=== PATIENT | male | born 1975 | race Hispanic/Latino ===

== ENCOUNTER 2016-12-23 03:58 | Emergency (ER) | payer OTHER ==
[2016-12-23 04:41] LABS: Urine Drugs of Abuse Note Disclamer
[2016-12-23 04:49] LABS: Bilirubin,Urine NEG (Negative); Blood,Urine NEG (Negative); Ketones,Urine NEG (Negative); Leukocyte Esterase,Urine TR (Negative); Mucus,Urine FEW /HPF; Nitrite,Urine NEG (Negative); Protein,Urine <15 mg/dL mg/dL (Negative); Urobilinogen,Urine < 2.0 mg/dL (<2.0)
[2016-12-23 05:00] LABS: Hematocrit 50.1 % (35.5-45.6); Hemoglobin 16.8 gm/dl (11.8-15.2); Mean Corpuscular HGB Conc 34 % (32-34); Mean Corpuscular Hemoglobin 33 pg (28-32); Mean Corpuscular Volume 99 fl (84-94); Platelet Count 398 K/mm3 (140-440); Red Blood Count 5.06 M/mm3 (3.65-5.03); Red Cell Distribution Width 14.1 % (13.2-15.2)
[2016-12-23 05:13] LABS: Anion Gap 18 mmol/L; BUN/Creatinine Ratio 8.57; Blood Urea Nitrogen 6 mg/dL (9-20); Calcium 9.2 mg/dL (8.4-10.2); Carbon Dioxide 31 mmol/L (22-30); Chloride 98.9 mmol/L (98-107); Glucose 132 mg/dL (75-100); Potassium 4.5 mmol/L (3.6-5.0); Sodium 143 mmol/L (137-145)
[2016-12-23] MEDS ORDERED: NACL 0.9% 1000 ML 1,000 ML IV ONE (13:04)
[2016-12-23] MEDS ORDERED: ATIVAN PO ONE (13:04)
[2016-12-23] MEDS ORDERED: ATIVAN IV PRN ×3 (13:38→13:41)
--- NOTE | 2016-12-23 14:26 | Emergency Department Report ---
ED Psych HPI - General Chief Complaint: Psych Stated Complaint: SUICIDAL Time Seen by Provider: 12/23/16 13:04 Source: patient Mode of arrival: Ambulatory - History of Present Illness MD Complaint: suicidal ideation, feels depressed, altered mental status Associated Psychiatric Symptoms: suicidal ideation History of same: Yes Quality: constant Improves With: none Worsens With: none Context: recent alcohol abuse, recent drug abuse, not taking psychiatric Associated Symptoms: denies: confusion, shortness of breath, nausea, vomiting, syncope If Self Harm: admits thoughts of - Related Data Home Medications Medication Instructions Recorded Confirmed Last Taken Calcium Carbonate/Simethicone 1 tab PO PRN PRN 04/10/16 12/23/16 Unknown [[place] Heartburn+Gas] Epitol 200 mg PO BID 04/10/16 12/23/16 Unknown Gabapentin [Neurontin] 300 mg PO DAILY 04/10/16 12/23/16 Unknown Prazosin [Minipress] 1 mg PO HS 04/10/16 12/23/16 Unknown diphenhydrAMINE [Benadryl CAP] 25 mg PO Q8HR PRN 04/10/16 12/23/16 Unknown Previous Rx's Medication Instructions Recorded Last Taken Type Famotidine [Pepcid] 10 mg PO BID #14 tablet 04/14/16 Unknown Rx Folic Acid [Folvite] 1 mg PO QDAY #30 tablet 04/14/16 Unknown Rx Thiamine [Vitamin B-1] 100 mg PO QDAY #30 tablet 04/14/16 Unknown Rx Allergies Allergy/AdvReac Type Severity Reaction Status Date / Time Penicillins Allergy Anaphylaxis Verified 04/10/16 02:36 Sulfa (Sulfonamide Allergy Anaphylaxis Verified 04/10/16 02:36 Antibiotics) ED Review of Systems ROS: Stated complaint: SUICIDAL Other details as noted in HPI Comment: All other systems reviewed and negative ED Past Medical Hx - Past Medical History Hx Psychiatric Treatment: Yes (Depression, Alcoholism) - Surgical History Past Surgical History?: No - Social History Smoking Status: Current Every Day Smoker Substance Use Type: Alcohol, Heroin - Medications Home Medications: Home Medications Medication Instructions Recorded Confirmed Last Taken Type Calcium Carbonate/Simethicone 1 tab PO PRN PRN 04/10/16 12/23/16 Unknown History [[place] Heartburn+Gas] Epitol 200 mg PO BID 04/10/16 12/23/16 Unknown History Gabapentin [Neurontin] 300 mg PO DAILY 04/10/16 12/23/16 Unknown History Prazosin [Minipress] 1 mg PO HS 04/10/16 12/23/16 Unknown History diphenhydrAMINE [Benadryl CAP] 25 mg PO Q8HR PRN 04/10/16 12/23/16 Unknown History Famotidine [Pepcid] 10 mg PO BID #14 tablet 04/14/16 12/23/16 Unknown Rx Folic Acid [Folvite] 1 mg PO QDAY #30 tablet 04/14/16 12/23/16 Unknown Rx Thiamine [Vitamin B-1] 100 mg PO QDAY #30 tablet 04/14/16 12/23/16 Unknown Rx ED Physical Exam - General Limitations: No Limitations General appearance: alert, in no apparent distress - Head Head exam: Present: atraumatic, normocephalic - Eye Eye exam: Present: normal appearance - ENT ENT exam: Present: mucous membranes moist - Neck Neck exam: Present: normal inspection - Respiratory Respiratory exam: Present: normal lung sounds bilaterally. Absent: respiratory distress - Cardiovascular Cardiovascular Exam: Present: regular rate, normal rhythm. Absent: systolic murmur, diastolic murmur, rubs, gallop - GI/Abdominal GI/Abdominal exam: Present: soft, normal bowel sounds - Rectal Rectal exam: Present: deferred - Extremities Exam Extremities exam: Present: normal inspection - Back Exam Back exam: Present: normal inspection - Neurological Exam Neurological exam: Present: alert, oriented X3 - Psychiatric Psychiatric exam: Present: depressed, anxious, flat affect - Skin Skin exam: Present: warm, dry, intact, normal color. Absent: rash ED Course Vital Signs 12/23/16 12/23/16 04:18 09:40 Temperature 97.7 F 98 F Pulse Rate 76 85 Respiratory 16 18 Rate Blood Pressure 125/91 Blood Pressure 125/91 106/60 [Left] O2 Sat by Pulse 98 97 Oximetry ED Medical Decision Making - Lab Data Result diagrams: 12/23/16 04:38 12/23/16 04:38 - Medical Decision Making will need transfer to psych facility, he has been doing well with ativan here m please referred to psych consultation on this chart. Critical care attestation.: If time is entered above; I have spent that time in minutes in the direct care of this critically ill patient, excluding procedure time. ED Disposition Clinical Impression: Alcohol withdrawal Disposition: DC/TX-65 PSY HOSP/PSY UNIT Is pt being admited?: No Does the pt Need Aspirin: No Condition: Fair Referrals: PRIMARY CAREMD [Primary Care Provider] - 3-5 Days Time of Disposition: 18:27
--- NOTE | 2016-12-23 14:48 | Consultation ---
History of Present Illness - Reason for Consult Reason for consult: withdrawal and SI Medications and Allergies Allergies Allergy/AdvReac Type Severity Reaction Status Date / Time Penicillins Allergy Anaphylaxis Verified 04/10/16 02:36 Sulfa (Sulfonamide Allergy Anaphylaxis Verified 04/10/16 02:36 Antibiotics) Home Medications Medication Instructions Recorded Confirmed Last Taken Type Calcium Carbonate/Simethicone 1 tab PO PRN PRN 04/10/16 12/23/16 Unknown History [[place] Heartburn+Gas] Epitol 200 mg PO BID 04/10/16 12/23/16 Unknown History Gabapentin [Neurontin] 300 mg PO DAILY 04/10/16 12/23/16 Unknown History Prazosin [Minipress] 1 mg PO HS 04/10/16 12/23/16 Unknown History diphenhydrAMINE [Benadryl CAP] 25 mg PO Q8HR PRN 04/10/16 12/23/16 Unknown History Famotidine [Pepcid] 10 mg PO BID #14 tablet 04/14/16 12/23/16 Unknown Rx Folic Acid [Folvite] 1 mg PO QDAY #30 tablet 04/14/16 12/23/16 Unknown Rx Thiamine [Vitamin B-1] 100 mg PO QDAY #30 tablet 04/14/16 12/23/16 Unknown Rx Active Meds: Active Medications Lorazepam (Ativan) 2 mg IV Q1H PRN PRN Reason: CIWA-Ar 8-15 Lorazepam (Ativan) 4 mg IV Q1H PRN PRN Reason: CIWA-Ar 16-25 Lorazepam (Ativan) 4 mg IV Q15MIN PRN PRN Reason: CIWA-Ar >25 Stop: 12/28/16 13:42 Mental Status Exam - Vital signs Last Vital Signs Temp 98 F 12/23/16 09:40 Pulse 85 12/23/16 09:40 Resp 18 12/23/16 09:40 BP 106/60 12/23/16 09:40 Pulse Ox 97 12/23/16 09:40 Results Result Diagrams: 12/23/16 04:38 12/23/16 04:38 Abnormal lab results 12/23/16 12/23/16 12/23/16 Range/Units 04:38 04:38 04:38 RBC 5.06 H (3.65-5.03) M/mm3 Hgb 16.8 H (11.8-15.2) gm/dl Hct 50.1 H (35.5-45.6) % MCV 99 H (84-94) fl MCH 33 H (28-32) pg Lymph % (Auto) 39.5 H (13.4-35.0) % Cole % (Auto) 10.6 H (0.0-7.3) % Cole # 0.9 H (0.0-0.8) K/mm3 Carbon Dioxide 31 H (22-30) mmol/L BUN 6 L (9-20) mg/dL Creatinine 0.7 L (0.8-1.5) mg/dL Glucose 132 H (75-100) mg/dL Plasma/Serum Alcohol 0.26 H (0-0.07) gm% All other labs normal. Assessment and Plan Assessment and plan: CHIEF COMPLAINT IN PATIENTS WORDS: HISTORY OF PRESENT ILLNESS: This is a 41-year-old undomiciled male with a past psychiatric history of major depression, alcohol abuse, cannabis abuse, opiate abuse, cocaine abuse who now presents acutely intoxicated on alcohol. Furthermore, patient notes that he's been expressing suicidal thoughts for the past weeks. Patient has been using alcohol and cocaine fairly regularly. Additionally, patient notes that he's been using opiates in the form of heroin fairly regularly as well. Currently, patient appears to be in significant distress and reporting that he is experiencing severe withdrawal. PSYCHIATRIC REVIEW OF SYSTEMS: Substance: UDS positive for cocaine, BAL 0.26 Detoxification/Withdrawal: Appears to be having some tremors and is visibly anxious Depression: Withdrawn, dysphoric Sachi: no labile moods, not hyperverbal, no flight of ideas Psychosis: no AVH, no thought disorder noted, no paranoia/grandiosity/erotomania Anxiety/ OCD/ PTSD: Frequent anxiety Suicidality: SI with plan to jump off bridge noted per review of medical record Other Self-Injurious Behavior: none currently, no SIB noted recently Violent/ Aggressive Behavior: none noted CURRENT MEDICATIONS: Benadryl Vitamin B1 Minipress Neurontin Pepcid Epitol ALLERGIES: Penicillin, sulfa drugs PAST PSYCHIATRIC HISTORY: Inpatient: Previously inpatient at [place] Outpatient: Unknown Prior Suicide Attempts: denies Prior Self-Injurious Behaviors: denies PAST PSYCHIATRIC MEDICATION TRIALS: Unknown MEDICAL HISTORY: Denies MENTAL STATUS EXAM: General Appearance: Dressed in hospital gown, appears to be very anxious and in distress Sensorium/Consciousness: alert and responding to external stimuli Eye Contact: limited Attitude / Behavior: cooperative, but guarded Psychomotor & Musculoskeletal Activity: Tremors noted Mood: Withdrawn and irritable Affect: Labile Speech / Language: Fluent and normal Thought Processes: Perseverative Thought Content: Passive SI noted Perception: Formication, no AVH noted Orientation: person, place, time, situation Judgment What would you do if you smelled smoke in a crowded movie theater?: poor/impulsive Insight: poor Intelligence Vocabulary, general fund of knowledge, educational level: Average Capacity of ADLs: Independent STRENGTHS: PSYCHOSOCIAL AND ENVIRONMENTAL STRESSORS: ASSESSMENT: Major depression severe recurrent Alcohol abuse versus dependence Cocaine abuse Opiate abuse PLAN OF CARE: [facility] protocol for signs and symptoms of alcohol withdrawal Refer for inpatient psychiatric care when patient medically stable
--- NOTE | 2016-12-24 10:43 | Progress Note ---
Subjective - Reason for Consult Consult date: 12/24/16 Reason for consult: Psychiatry Follow-up - Chief Complaint Chief complaint: "My life sucks" This is a 41-year-old undomiciled male with a past psychiatric history of major depression, alcohol abuse, cannabis abuse, opiate abuse, cocaine abuse who now presents acutely intoxicated on alcohol. Today patient is calm and cooperative with passive SI's. He stated that he does not have a plan on how he would end his life. He stated he last used heroin and alcohol 3 days ago. He denies HI's, AVH's, but rate his depression a 7/10, with 10 being the worse. He stated taking antidepressants in the past with no therapeutic effect. Mental Status Exam - Vital signs Last Vital Signs Temp 98.1 F 12/24/16 08:19 Pulse 69 12/24/16 08:19 Resp 16 12/24/16 08:19 BP 107/71 12/24/16 08:19 Pulse Ox 100 12/24/16 08:19 - Exam Narrative exam: MSE: Appearance: calm, cooperative Behavior: poor eye contact Speech: regular rate and tone Mood: "horrible" Affect: labile Thought Process: linear Thought Content: denies HI's and AVH's Motor Activity: ambulatory Cognition: A/Ox 3 Insight: limited Judgment: limited Assessment and Plan Impression: MDD, Alcohol Use DO, Substance Use DO (Opioids/Cocaine). Today patient is calm and cooperative with passive SI's. He stated that he does not have a plan on how he would end his life. He stated he last used heroin and alcohol 3 days ago. Positive for cocaine. Alcohol serum 0.26. Mild to moderate tremors noted. Recommendation/Plan: Continue 1013 with placement to inpatient psy services. Continue [facility] protocol. monitor for Opioid withdrawals (body aches, diarrhea, N/ V, and sweating).
[2016-12-25] MEDS ORDERED: TYLENOL ONE (09:20)
[2016-12-25] MEDS ORDERED: TYLENOL PO ONE (09:54)
--- NOTE | 2016-12-25 11:53 | Progress Note ---
Subjective - Reason for Consult Consult date: 12/25/16 Reason for consult: Psychiatry Follow-up - Chief Complaint Chief complaint: "I don't know what to do" This is a 41-year-old undomiciled male with a past psychiatric history of major depression, alcohol abuse, cannabis abuse, opiate abuse, cocaine abuse who now presents acutely intoxicated on alcohol. Today patient is calm and cooperative with passive SI's. He stated that he have no answers for his life at this time. He stated his drug addiction is his biggest concern. He denies HI's and AVH's. He stated that he feel horrible from the withdrawals ( headache). Mental Status Exam - Vital signs Last Vital Signs Temp 98.5 F 12/25/16 05:19 Pulse 74 12/25/16 05:19 Resp 18 12/25/16 05:19 BP 122/81 12/25/16 05:19 Pulse Ox 98 12/25/16 05:19 - Exam Narrative exam: MSE: Appearance: calm, cooperative Behavior: poor eye contact Speech: regular rate and tone Mood: "feel bad" Affect: labile Thought Process: linear Thought Content: denies HI's and AVH's Motor Activity: ambulatory Cognition: A/Ox 3 Insight: limited Judgment: limited Assessment and Plan Impression: MDD, Alcohol Use DO, Substance Use DO (Opioids/Cocaine). Today patient is calm and cooperative with passive SI's. Positive for cocaine. Mild to moderate tremors noted. Recommendation/Plan: Continue 1013 with placement to inpatient psy services. Continue CIWA protocol with Ativan. Monitor for opioid withdrawals (body aches, diarrhea, N/V, and sweating).
[2016-12-25] MEDS: ATIVAN IV PRN (20:48)
[2016-12-26] MEDS: ATIVAN IV PRN ×2 (12:27→22:25)
--- NOTE | 2016-12-26 16:41 | Progress Note ---
Subjective - Reason for Consult Consult date: 12/26/16 Reason for consult: follow up - Chief Complaint Chief complaint: "Ready for the hospital" This is a 41-year-old undomiciled male with a past psychiatric history of major depression, alcohol abuse, cannabis abuse, opiate abuse, cocaine abuse who presented acutely intoxicated on alcohol. Today patient is calm and cooperative. He reports SI with multiple plans. He would not elaborate. He denies HI's and AVH's. He reports feeling hot/cold flashes, abdominal cramps, and malaise. He attributes this to opiate withdrawal. He is on CIWA for etoh withdrawal. Mental Status Exam - Vital signs Last Vital Signs Temp 98.3 F 12/26/16 07:51 Pulse 73 12/26/16 07:51 Resp 20 12/26/16 08:00 BP 110/92 12/26/16 07:51 Pulse Ox 100 12/26/16 08:00 Assessment and Plan MSE: Appearance: calm, cooperative Behavior: poor eye contact Speech: regular rate and tone Mood: depressed Affect: congruent Thought Process: linear Thought Content: SI present with multiple plans. denies HI's and AVH's Motor Activity: ambulatory Cognition: A/Ox 3 Insight: limited Judgment: limited Assessment and Plan Impression: MDD, Alcohol Use DO, Substance Use DO (Opioids/Cocaine). Recommendation/Plan: Continue 1013 with placement to inpatient psy services. Continue CIWA protocol with Ativan. Monitor for worsening opioid withdrawals ( body aches, diarrhea, N/V, and sweating).
--- NOTE | 2016-12-27 09:52 | Progress Note ---
Subjective - Reason for Consult Consult date: 12/27/16 Reason for consult: Psychiatry Follow-up - Chief Complaint Chief complaint: "Ready for the hospital" This is a 41-year-old undomiciled male with a past psychiatric history of major depression, alcohol abuse, cannabis abuse, opiate abuse, cocaine abuse who presented acutely intoxicated on alcohol. Today patient is calm and cooperative. He still reports SI without a plan. He stated, "My life is a mess at this time. " He stated that he physically feels better. He denies HI's and AVH's. He is on CIWA for etoh withdrawal. He rate his depression 7/10, with 10 being the worse. Patient stated that he has taken multiple SSRU's and Wellbutrin in the past with no therapeutic effect. Mental Status Exam - Vital signs Last Vital Signs Temp 98.3 F 12/26/16 07:51 Pulse 73 12/26/16 07:51 Resp 20 12/26/16 08:00 BP 110/92 12/26/16 07:51 Pulse Ox 100 12/26/16 08:00 - Exam Narrative exam: MSE: Appearance: calm, cooperative Behavior: good eye contact Speech: regular rate and tone Mood: "a little better" Affect: labile Thought Process: linear Thought Content: denies HI's and AVH's Motor Activity: ambulatory Cognition: A/Ox 3 Insight: fair Judgment: limited Assessment and Plan Impression: MDD, Alcohol Use DO, Substance Use DO (Opioids/Cocaine). Today patient is calm and cooperative with passive SI's. Positive for cocaine. Mild tremors noted. Recommendation/Plan: Continue 1013 with placement to inpatient psy services. Continue CIWA protocol with Ativan. Monitor for opioid withdrawals (body aches, diarrhea, N/V, and sweating). Start Seroquel 100 mg PO HS for mood. Discussed possible metabolic side effects of Seroquel with patient.
[2016-12-27] MEDS: ATIVAN IV PRN (12:17)
--- NOTE | 2016-12-28 13:36 | Progress Note ---
Subjective - Reason for Consult Consult date: 12/28/16 Reason for consult: Psychiatry Follow-up - Chief Complaint Chief complaint: "Ready for the hospital" This is a 41-year-old undomiciled male with a past psychiatric history of major depression, alcohol abuse, cannabis abuse, opiate abuse, cocaine abuse who presented acutely intoxicated on alcohol. Today patient is calm and cooperative. He reported that his left leg was restless (RLS) possibly from taking Seroquel, so he didn't sleep well last night. He stated that he is willing to try Zoloft for depression which he tried in the past. He denies SI/HI 's, AVH's, and a poor appetite. Patient stated that getting off the recreational drugs is his main priority. He rate his depression 6/10, with 10 being the worse. Mental Status Exam - Vital signs Last Vital Signs Temp 98.6 F 12/28/16 11:10 Pulse 88 12/28/16 11:10 Resp 20 12/28/16 11:10 BP 111/77 12/28/16 11:10 Pulse Ox 99 12/28/16 11:10 - Exam Narrative exam: MSE: Appearance: calm, cooperative Behavior: good eye contact Speech: regular rate and tone Mood: "fine" Affect: labile Thought Process: linear Thought Content: denies SI/HI's and AVH's Motor Activity: ambulatory Cognition: A/Ox 3 Insight: fair Judgment: fair Assessment and Plan Impression: MDD, Alcohol Use DO, Substance Use DO (Opioids/Cocaine). No tremors noted (etoh). I. This screening and assessment is based on information collected from the following sources: II. SUICIDE RISK SCREENING (within last 30 days): A.) Suicidal thoughts/behaviors: Yes SUICIDE RISK ASSESSMENT III. FACTORS THAT INCREASE RISK: A.) Demographic and Substance Use Factors: Substance (Cocaine/Opioids) B.) Current/Recent Factors (within past 3 months): Psychosocial/Environmental Factors: Homeless Physical Illness: None Cognitive/Psychological Factors: None C.) Historical Factors: None D.) Diagnostic/Symptom/Treatment Factors: None E.) Acute Risk Factor Severity (DESC; MILD/MOD/SEVERE): Mild Other factors for this individual that increase risk: IV. FACTORS THAT DECREASE RISK: Resilience/Protective Factors: Father is his support system Other factors for this individual that decrease risk: Patient denies a desire to harm self V. Clinician's Formulation of Risk and Determination of level of Care: This is a 41-year-old male who is experiencing depression exacerbated by substance abuse. Patient is concerned about his current life referencing substance abuse. He is willing to attend rehab services once discharged. The last 24 hours patient has denied the desire to harm himself. Additionally, he has become insightful about how to better address his current issues. Patient is not impaired by substance. He is able to take care of his ADLs and is not at imminent risk of harm to self or others. Consequently, it is the opinion of the treatment team that the patient is at low risk of suicide and does not meet criteria to continue an involuntary psychiatric hold. Estimation of Imminent Risk: Low due to the above explanation. Determination of Level of Care based on Suicide Risk: Outpatient follow-up. Narrative description of clinical reasoning. (This must be completed on all patients): . Plan and Interventions based on Suicide Risk: This patient will likely be stepped down to an outpatient mental health center in the community upon discharge and follow-up within 7 days of her discharge from the hospital. VII. Discharge/After Hours Support Plan: Patient can return back to the ER, call 911 or crisis line if symptoms of depression, anxiety, suicidality return. Recommendation/Plan: Rescind 1013. Continue Zoloft 50 mg PO Daily for depression and Vistaril 25 mg PO BID for anxiety. Discussed possible suicidality /medication induced madhu with patient reference antidepressants. [employer] involvement, patient is homeless. Discussed the importance to abstain from alcohol/recreational drugs. Patient will be given outpatient psy/rehab services information for his local area before discharge. Want to reassess patient in 24 hours, do not discharge.
[2016-12-28] MEDS: ZOLOFT PO SCH (14:38)
[2016-12-28] MEDS: VISTARIL PO SCH ×2 (14:38→21:58)
[2016-12-28 21:12] VITALS: BP 124/72
[2016-12-29] MEDS: ZOLOFT PO SCH (10:37)
[2016-12-29] MEDS: VISTARIL PO SCH (10:37)
--- NOTE | 2016-12-29 11:21 | Emergency Department Report ---
Blank Doc - Documentation Documentation: Patient's form 1013 was rescinded yesterday by psychiatry. Per their request, the patient has been observed in the emergency department for an additional 24 hours, requiring no intervention. Patient will be discharged home at this time to follow up with outpatient services for his substance abuse problem.
== END 2016-12-29 11:50 | disposition home or self-care (01) ==
LOC: ED 03:58 → EEVIPCON 03:58 → ED 12-29 11:50
DX: F10.239 Alcohol dependence with withdrawal, unspecified (principal); F17.200 Nicotine dependence, unspecified, uncomplicated; F11.10 Opioid abuse, uncomplicated; F32.9 Major depressive disorder, single episode, unspecified
CPT/HCPCS: 36415; 80048; 80307; 81001; 85025; 96361; 96374; 96376; 99285; G0480; J2060; J7030; 80320; Q0177

== ENCOUNTER 2019-04-22 10:37 | Emergency (ER) | payer SELFPAY ==
[2019-04-22] MEDS ORDERED: LORazepam 2 MG/ML VIAL IV ONE (12:39)
[2019-04-22] MEDS ORDERED: LORazepam 2 MG/ML VIAL ONE (12:41)
[2019-04-22] MEDS ORDERED: THIAMINE 100 MG, FOLIC ACID 1 MG, MULTIPLE VITAMIN/VIT K 10 ML in SODIUM CHLORIDE 0.9% ... IV ONE (12:45)
[2019-04-22 12:55] LABS: Basophils # (Auto) 0.1 K/mm3 (0.0-0.1); Hematocrit 47.6 % (35.5-45.6); Hemoglobin 16.6 gm/dl (11.8-15.2); Lymphocytes # (Auto) 0.8 K/mm3 (1.2-5.4); Lymphocytes % (Auto) 9.3 % (13.4-35.0); Mean Corpuscular HGB Conc 35 % (32-34); Mean Corpuscular Volume 101 fl (84-94); Monocytes # (Auto) 1.1 K/mm3 (0.0-0.8); Monocytes % (Auto) 13.6 % (0.0-7.3); Platelet Count 132 K/mm3 (140-440); Red Blood Count 4.71 M/mm3 (3.65-5.03); Red Cell Distribution Width 12.9 % (13.2-15.2)
[2019-04-22 13:06] LABS: BUN/Creatinine Ratio 20; Blood Urea Nitrogen 20 mg/dL (9-20); Calcium 9.7 mg/dL (8.4-10.2); Hemolysis Index 9; INR 0.94 (0.87-1.13); Partial Thromboplastin Time 24.7 Sec. (24.2-36.6)
[2019-04-22 13:10] LABS: Albumin 4.6 g/dL (3.9-5); Bilirubin,Direct 0.5 mg/dL (0-0.2)
--- NOTE | 2019-04-22 14:07 | Emergency Department Report ---
ED General Adult HPI - General Chief complaint: Alcohol Stated complaint: DETOX Time Seen by Provider: 04/22/19 12:12 Source: patient, EMS Mode of arrival: Stretcher Limitations: No Limitations - History of Present Illness Initial comments: 43-year-old male states he stopped drinking for days ago. He has a history of delirium tremens. He has his history of cocaine/substance abuse. He states he's not substances now. He is oriented. He is really quite shaky on my encounter. He states he is admitted to [facility] 2-3 months ago under similar circumstances but then "I was having mental health problems". He states he is not suicidal now. The patient knows he is withdrawing from alcohol. He is requesting detox. -: Gradual, days(s) Consistency: constant (shakiness) Associated Symptoms: denies other symptoms Treatments Prior to Arrival: none - Related Data Home Medications Medication Instructions Recorded Confirmed Last Taken Calcium Carbonate/Simethicone 1 tab PO PRN PRN 04/10/16 12/23/16 Unknown [[place] Heartburn+Gas] Epitol 200 mg PO BID 04/10/16 12/23/16 Unknown Gabapentin 300 mg PO DAILY 04/10/16 12/23/16 Unknown Prazosin 1 mg PO HS 04/10/16 12/23/16 Unknown diphenhydrAMINE [Benadryl CAP] 25 mg PO Q8HR PRN 04/10/16 12/23/16 Unknown Previous Rx's Medication Instructions Recorded Last Taken Type Famotidine [Pepcid] 10 mg PO BID #14 tablet 04/14/16 Unknown Rx Folic Acid [Folvite] 1 mg PO QDAY #30 tablet 04/14/16 Unknown Rx Thiamine [Vitamin B-1] 100 mg PO QDAY #30 tablet 04/14/16 Unknown Rx Allergies Allergy/AdvReac Type Severity Reaction Status Date / Time Penicillins Allergy Anaphylaxis Verified 04/10/16 02:36 Sulfa (Sulfonamide Allergy Anaphylaxis Verified 04/10/16 02:36 Antibiotics) ED Review of Systems ROS: Stated complaint: DETOX Other details as noted in HPI Constitutional: denies: chills, fever Eyes: denies: eye pain, eye discharge, vision change ENT: denies: ear pain, throat pain Respiratory: denies: cough, shortness of breath, wheezing Cardiovascular: denies: chest pain, palpitations Endocrine: no symptoms reported Gastrointestinal: denies: abdominal pain, nausea, diarrhea Genitourinary: denies: urgency, dysuria Musculoskeletal: denies: back pain, joint swelling, arthralgia Skin: denies: rash, lesions Neurological: denies: headache, weakness, paresthesias Psychiatric: denies: anxiety, depression Hematological/Lymphatic: denies: easy bleeding, easy bruising ED Past Medical Hx - Past Medical History Previous Medical History?: No Hx Psychiatric Treatment: Yes (Depression, Alcoholism) - Surgical History Past Surgical History?: No - Social History Smoking Status: Current Every Day Smoker Substance Use Type: Alcohol, Cocaine (he now denies) - Medications Home Medications: Home Medications Medication Instructions Recorded Confirmed Last Taken Type Calcium Carbonate/Simethicone 1 tab PO PRN PRN 04/10/16 12/23/16 Unknown History [[place] Heartburn+Gas] Epitol 200 mg PO BID 04/10/16 12/23/16 Unknown History Gabapentin 300 mg PO DAILY 04/10/16 12/23/16 Unknown History Prazosin 1 mg PO HS 04/10/16 12/23/16 Unknown History diphenhydrAMINE [Benadryl CAP] 25 mg PO Q8HR PRN 04/10/16 12/23/16 Unknown History Famotidine [Pepcid] 10 mg PO BID #14 tablet 04/14/16 12/23/16 Unknown Rx Folic Acid [Folvite] 1 mg PO QDAY #30 tablet 04/14/16 12/23/16 Unknown Rx Thiamine [Vitamin B-1] 100 mg PO QDAY #30 tablet 04/14/16 12/23/16 Unknown Rx ED Physical Exam - General Limitations: No Limitations General appearance: alert, in no apparent distress - Head Head exam: Present: atraumatic, normocephalic - Eye Eye exam: Present: normal appearance, PERRL, EOMI. Absent: scleral icterus - ENT ENT exam: Present: mucous membranes moist - Neck Neck exam: Present: normal inspection. Absent: tenderness, meningismus - Respiratory Respiratory exam: Present: normal lung sounds bilaterally. Absent: respiratory distress - Cardiovascular Cardiovascular Exam: Present: regular rate, normal rhythm. Absent: systolic murmur, diastolic murmur, rubs, gallop - GI/Abdominal GI/Abdominal exam: Present: soft, normal bowel sounds. Absent: distended, tenderness, guarding, rebound, rigid - Rectal Rectal exam: Present: deferred - Extremities Exam Extremities exam: Present: normal inspection - Back Exam Back exam: Present: normal inspection - Neurological Exam Neurological exam: Present: alert, oriented X3, CN II-XII intact. Absent: motor sensory deficit - Psychiatric Psychiatric exam: Present: agitated, anxious - Skin Skin exam: Present: warm, dry, intact, normal color. Absent: rash ED Course Vital Signs 04/22/19 11:00 Temperature 97.7 F Pulse Rate 118 H Respiratory 20 Rate Blood Pressure 160/90 O2 Sat by Pulse 100 Oximetry - Reevaluation(s) Reevaluation #1: Patient was given 2 mg of Ativan with benefit. He is instructed delirium tremens. He has a number of metabolic abnormalities and a mild elevation of his lipase. He is referred to Dr. Guevara for final disposition. I discussed options for alcohol detox with mental health counselor. She stated that there would be no opportunity for facility to a facility transfer. 04/22/19 14:16 ED Medical Decision Making - Lab Data Result diagrams: 04/22/19 12:29 04/22/19 12:29 Laboratory Results - last 24 hr 04/22/19 04/22/19 04/22/19 12:29 12:29 12:29 WBC 8.3 RBC 4.71 Hgb 16.6 H Hct 47.6 H MCV 101 H MCH 35 H MCHC 35 H RDW 12.9 L Plt Count 132 L Lymph % (Auto) 9.3 L [place] % (Auto) 13.6 H Eos % (Auto) 0.0 Baso % (Auto) 1.0 Lymph # 0.8 L [place] # 1.1 H Eos # 0.0 Baso # 0.1 Seg Neutrophils % 76.1 H Seg Neutrophils # 6.3 PT INR APTT Sodium 133 L Potassium 4.2 Chloride 90.7 L Carbon Dioxide 24 Anion Gap 23 BUN 20 Creatinine 1.0 Estimated GFR > 60 BUN/Creatinine Ratio 20 Glucose 204 H Calcium 9.7 Magnesium 2.20 Total Bilirubin Direct Bilirubin Indirect Bilirubin AST ALT Alkaline Phosphatase Total Protein Albumin Albumin/Globulin Ratio Lipase 87 H Plasma/Serum Alcohol < 0.01 04/22/19 04/22/19 12:29 12:29 WBC RBC Hgb Hct MCV MCH MCHC RDW Plt Count Lymph % (Auto) [place] % (Auto) Eos % (Auto) Baso % (Auto) Lymph # [place] # Eos # Baso # Seg Neutrophils % Seg Neutrophils # PT 12.5 INR 0.94 APTT 24.7 Sodium Potassium Chloride Carbon Dioxide Anion Gap BUN Creatinine Estimated GFR BUN/Creatinine Ratio Glucose Calcium Magnesium Total Bilirubin 2.10 H Direct Bilirubin 0.5 H Indirect Bilirubin 1.6 AST 74 H ALT 31 Alkaline Phosphatase 116 Total Protein 7.9 Albumin 4.6 Albumin/Globulin Ratio 1.4 Lipase Plasma/Serum Alcohol - Radiology Data Radiology results: pending Critical care attestation.: If time is entered above; I have spent that time in minutes in the direct care of this critically ill patient, excluding procedure time. ED Disposition Clinical Impression: Hyponatremia, Elevated lipase, Chronic liver disease, Hyperglycemia Alcohol withdrawal Qualifiers: Complication of substance-induced condition: with perceptual disturbance Qualified Code(s): F10.232 - Alcohol dependence with withdrawal with perceptual disturbance Disposition: DC-09 OP ADMIT IP TO THIS HOSP Is pt being admited?: Yes Does the pt Need Aspirin: No Condition: Stable Referrals: PRIMARY CARE, [Primary Care Provider] - 3-5 Days Time of Disposition: 14:17
[2019-04-22] MEDS ORDERED: LORazepam 2 MG/ML VIAL IV PRN ×2 (14:18)
--- NOTE | 2019-04-22 15:11 | XRay Report ---
CHEST 1 VIEW INDICATION: hypertension. COMPARISON: One day prior. FINDINGS: Support devices: Unchanged. Heart: Stable. Lungs/Pleura: No acute pulmonary or pleural findings. There is a calcified granuloma in the lateral l eft lower lung. IMPRESSION: 1. No significant change. Signer Name: Vinny Arrieta MD Signed: 04/22/2019 3:07 PM Workstation Name: [id number]
[2019-04-22] MEDS: LORazepam 2 MG/ML VIAL IV PRN ×5 (15:13→18:29)
[2019-04-22 19:36] VITALS: BP 117/81
--- NOTE | 2019-04-22 19:47 | Event Note ---
Date: 04/22/19 43 YO Male with ETOH Dependence. Pt resting comfortably and in no acute distress. Pt does not have any signs or symptoms consistent with ETOH withdrawl. Pt medically optimized. Pt counseled regarding ETOH cessation. Pt encouraged to attend AA meeting upon discharge. - General Limitations: No Limitations General appearance: alert, in no apparent distress - Head Head exam: Present: atraumatic, normocephalic - Eye Eye exam: Present: normal appearance, PERRL, EOMI. Absent: scleral icterus - ENT ENT exam: Present: mucous membranes moist - Neck Neck exam: Present: normal inspection. Absent: tenderness, meningismus - Respiratory Respiratory exam: Present: normal lung sounds bilaterally. Absent: respiratory distress - Cardiovascular Cardiovascular Exam: Present: regular rate, normal rhythm. Absent: systolic murmur, diastolic murmur, rubs, gallop - GI/Abdominal GI/Abdominal exam: Present: soft, normal bowel sounds. Absent: distended, tenderness, guarding, rebound, rigid - Rectal Rectal exam: Present: deferred - Extremities Exam Extremities exam: Present: normal inspection - Back Exam Back exam: Present: normal inspection - Neurological Exam Neurological exam: Present: alert, oriented X3, CN II-XII intact. Absent: motor sensory deficit - Psychiatric Psychiatric exam: Present: agitated, anxious - Skin Skin exam: Present: warm, dry, intact, normal color. Absent: rash
[2019-04-22 20:30] LABS: Bacteria,Urine 1+ /HPF (Negative); Bilirubin,Urine NEG (Negative); Blood,Urine NEG (Negative); Color,Urine Amber (Yellow); Hyaline Casts,Urine 27 /LPF; Mucus,Urine 3+ /HPF
[2019-04-22 20:33] LABS: Amphetamine Screen,Urine PRESUMPTIVE NEGATIVE; Benzodiazepines Screen,Urine PRESUMPTIVE NEGATIVE; Cannabinoid Screen,Urine PRESUMPTIVE NEGATIVE; Methadone Screen,Urine PRESUMPTIVE NEGATIVE; Opiate Screen,Urine PRESUMPTIVE NEGATIVE
[2019-04-22 20:58] LABS: Cocaine Screen,Urine PRESUMPTIVE POSITIVE
== END 2019-04-22 21:06 | disposition admitted as inpatient to this hospital (09) ==
LOC: ED 10:37
DX: F10.232 Alcohol dependence with withdrawal with perceptual disturbance (principal); E87.1 Hypo-osmolality and hyponatremia; R74.8 Abnormal levels of other serum enzymes; K76.9 Liver disease, unspecified; R73.9 Hyperglycemia, unspecified; F32.9 Major depressive disorder, single episode, unspecified; F17.200 Nicotine dependence, unspecified, uncomplicated; Z79.899 Other long term (current) drug therapy; Z88.0 Allergy status to penicillin; Z88.2 Allergy status to sulfonamides
CPT/HCPCS: 36415; 71045; 80048; 80076; 80307; 81001; 83690; 83735; 85025; 85610; 85730; 93005; 93010; 96365; 96366; 96375; 96376; 99285; J2060; J3411; J7030; 80320; G0480

== ENCOUNTER 2019-10-30 18:12 | Emergency (ER) | payer SELFPAY ==
[2019-10-30] MEDS ORDERED: HALOPERIDOL LACTATE 5 MG/1 ML INJ IM PRN (18:30)
[2019-10-30] MEDS ORDERED: LORazepam 2 MG/ML VIAL IV PRN (18:30)
[2019-10-30] MEDS ORDERED: LORazepam 2 MG/ML VIAL IM PRN (18:30)
--- NOTE | 2019-10-30 18:33 | Emergency Department Report ---
<JUNIOR PALENCIA - Last Filed: 10/30/19 19:57> ED General Adult HPI - General Chief complaint: Alcohol Stated complaint: ETOH PUI?: No Time Seen by Provider: 10/30/19 18:29 Source: patient, EMS (Verbal report received from emergency medical services. EMS documentation not available at time of chart dictation ), RN notes reviewed, old records reviewed Mode of arrival: Stretcher Limitations: Other (Alcohol intoxication) - History of Present Illness Initial comments: 43-year-old gentleman, who is not known to myself previously, reports a history of homelessness and alcohol dependence, brought to the hospital by emergency medical services. As per verbal report from EMS, erin Silver called [facility] medical services as the patient was seen sleeping at a local gas station. EMS thus brought the patient to the emergency room. The patient states he is homeless, complains of total body pain. He also states he needs to be a "2014." He indicates that he might hurt himself. He cannot clarify how he will hurt himself. He makes no complaint of headache, neck pain, chest pain, abdominal pain, shortness of breath. The patient indicates he does not have access to guns or firearms. The patient is not accompanied by friends or family at this time for additional information or collateral information. The patient is floridly intoxicated at this time. -: This afternoon Radiation: other Quality: other Consistency: other Improves with: other Worsens with: other Associated Symptoms: other - Related Data Home Medications Medication Instructions Recorded Confirmed Last Taken Calcium Carbonate/Simethicone 1 tab PO PRN PRN 04/10/16 12/23/16 Unknown [Paulina-Butler Heartburn+Gas] Epitol 200 mg PO BID 04/10/16 12/23/16 Unknown Gabapentin 300 mg PO DAILY 04/10/16 12/23/16 Unknown Prazosin 1 mg PO HS 04/10/16 12/23/16 Unknown diphenhydrAMINE [Benadryl CAP] 25 mg PO Q8HR PRN 04/10/16 12/23/16 Unknown Previous Rx's Medication Instructions Recorded Last Taken Type Famotidine [Pepcid] 10 mg PO BID #14 tablet 04/14/16 Unknown Rx Folic Acid [Folvite] 1 mg PO QDAY #30 tablet 04/14/16 Unknown Rx Thiamine [Vitamin B-1] 100 mg PO QDAY #30 tablet 04/14/16 Unknown Rx Folic Acid [Folvite] 1 mg PO QDAY #30 tablet 04/22/19 Unknown Rx Multivitamin [Daily Multiple 1 each PO DAILY #30 tablet 04/22/19 Unknown Rx Vitamin] Thiamine [Vitamin B-1] 100 mg PO QDAY #30 tablet 04/22/19 Unknown Rx Allergies Allergy/AdvReac Type Severity Reaction Status Date / Time Penicillins Allergy Anaphylaxis Verified 04/10/16 02:36 Sulfa (Sulfonamide Allergy Anaphylaxis Verified 04/10/16 02:36 Antibiotics) ED Review of Systems Comment: Unobtainable due to pts medical conditions Musculoskeletal: myalgia Psychiatric: anxiety, suicidal thoughts ED Past Medical Hx - Past Medical History Hx Psychiatric Treatment: Yes (Depression, Alcoholism) - Social History Smoking Status: Current Every Day Smoker Substance Use Type: Alcohol, Cocaine (he now denies) - Medications Home Medications: Home Medications Medication Instructions Recorded Confirmed Last Taken Type Calcium Carbonate/Simethicone 1 tab PO PRN PRN 04/10/16 12/23/16 Unknown History [Paulina-Butler Heartburn+Gas] Epitol 200 mg PO BID 04/10/16 12/23/16 Unknown History Gabapentin 300 mg PO DAILY 04/10/16 12/23/16 Unknown History Prazosin 1 mg PO HS 04/10/16 12/23/16 Unknown History diphenhydrAMINE [Benadryl CAP] 25 mg PO Q8HR PRN 04/10/16 12/23/16 Unknown History Famotidine [Pepcid] 10 mg PO BID #14 tablet 04/14/16 12/23/16 Unknown Rx Folic Acid [Folvite] 1 mg PO QDAY #30 tablet 04/14/16 12/23/16 Unknown Rx Thiamine [Vitamin B-1] 100 mg PO QDAY #30 tablet 04/14/16 12/23/16 Unknown Rx Folic Acid [Folvite] 1 mg PO QDAY #30 tablet 04/22/19 Unknown Rx Multivitamin [Daily Multiple 1 each PO DAILY #30 tablet 04/22/19 Unknown Rx Vitamin] Thiamine [Vitamin B-1] 100 mg PO QDAY #30 tablet 04/22/19 Unknown Rx ED Physical Exam - General Limitations: Other (Alcohol intoxication) General appearance: appears intoxicated, anxious - Head Head exam: Present: atraumatic, normocephalic - Eye Eye exam: Present: normal appearance, PERRL, EOMI. Absent: nystagmus - ENT ENT exam: Present: normal exam, normal orophraynx, mucous membranes moist, TM's normal bilaterally, normal external ear exam, other (There is no nasal septal hematoma. There is no hemotympanum) - Neck Neck exam: Present: normal inspection, full ROM. Absent: tenderness, meningismus - Respiratory Respiratory exam: Present: normal lung sounds bilaterally. Absent: respiratory distress - Cardiovascular Cardiovascular Exam: Present: regular rate, normal rhythm, normal heart sounds. Absent: bradycardia, tachycardia, irregular rhythm, systolic murmur, diastolic murmur, rubs, gallop - GI/Abdominal GI/Abdominal exam: Present: soft. Absent: distended, tenderness, guarding, rebound, rigid, pulsatile mass - Rectal Rectal exam: Present: deferred - Extremities Exam Extremities exam: Present: normal inspection, full ROM, other (2+ pulses noted in the bilateral upper and lower extremities. There is no palpable cord. negative Homans sign. Muscular compartments are soft. The pelvis is stable.). Absent: pedal edema, calf tenderness - Back Exam Back exam: Present: normal inspection, full ROM. Absent: tenderness, CVA tenderness (R), CVA tenderness (L), paraspinal tenderness, vertebral tenderness - Neurological Exam Neurological exam: Present: other (No facial droop. Tongue midline. Extraocular movements intact bilaterally. Facial sensation intact to light touch in V1, V2, V3 distribution bilaterally. 5 and a 5 strength in 4 extremities. Sensation intact to light touch in 4 extremities.) - Psychiatric Psychiatric exam: Present: agitated, anxious, suicidal ideation - Skin Skin exam: Present: warm, dry, intact, normal color. Absent: rash ED Course - Reevaluation(s) Reevaluation #1: 10/30/19 19:58 Differential diagnosis, including but not limited to: Alcohol intoxication, e lectrolyte derangement, intracranial injury, cervical spine injury, alcohol induced psychosis, medical clearance for psychiatric placement Assessment and plan: 43-year-old gentleman who was intoxicated, with no obvious significant external injuries, CT scan of the brain and cervical spine negative for acute traumatic disease, awake to name, follows commands, moving 4 extremities, screening laboratory studies unremarkable, with the exception of markedly elevated blood alcohol level. Patient also admits on review of systems to contemplating suicide. Suspect this is secondary to alcohol intoxication, and may be related to underlying social situation. Patient placed on hold. Alcohol withdrawal protocol ordered empirically. Thiamine and multivitamin ordered. Psychiatric consultation is requested. At the moment, the patient does not appear to have an immediate medical contraindication to psychiatric admission, evaluation, consultation and placement. However, if the patient becomes clinically sober, and then denies suicidality, and exhibits decision-making capacity, I would consider it reasonable to discharge him with outpatient follow-up. ED Medical Decision Making - Lab Data Result diagrams: 10/30/19 19:05 10/30/19 19:05 Vital Signs 10/30/19 18:30 Temperature 97.3 F L Pulse Rate 78 Respiratory 16 Rate Blood Pressure 122/73 O2 Sat by Pulse 98 Oximetry Lab Results 10/30/19 10/30/19 Range/Units 19:05 19:05 Hgb 17.8 H (11.8-15.2) gm/dl Hct 53.1 H (35.5-45.6) % Plt Count 99 L (140-440) K/mm3 Sodium 136 L (137-145) mmol/L Potassium 4.5 (3.6-5.0) mmol/L Chloride 94.7 L (98-107) mmol/L Carbon Dioxide 23 (22-30) mmol/L Anion Gap 23 mmol/L BUN 9 (9-20) mg/dL Creatinine 0.7 L (0.8-1.5) mg/dL Estimated GFR > 60 ml/min BUN/Creatinine Ratio 13 % Glucose 159 H (75-100) mg/dL Calcium 9.2 (8.4-10.2) mg/dL Magnesium 2.80 H (1.7-2.3) mg/dL Total Creatine Kinase 220 H (55-170) units/L - EKG Data -: EKG Interpreted by Me EKG shows normal: sinus rhythm Rate: normal - EKG Data When compared to previous EKG there are: no significant change Interpretation: unchanged when compared t 10/30/19 19:44 Sinus rhythm, 97 bpm, normal axis, QTC prolonged, atrial enlargement, high left ventricular voltage. The EKG is abnormal. The EKG is not a STEMI. Appears to be grossly unchanged from prior EKG from 04/22/2019 - Radiology Data Radiology results: report reviewed, image reviewed Noncontrast CT scan of the brain and cervical spine negative for acute findings. Chronic findings noted. Print Report Referring Physician: JUNIOR PALENCIA Patient Name: ALESSIA HATCH Date of : 1975 Sex: Male Report Date: 2019-10-30 Report Status: Finalized Findings [facility] [address] [place] [address] Cat Scan Report Signed Patient: ALESSIA HATCH MR#: [id number] : 1975 Acct:[id number] Age/Sex: 43 / M ADM Date: 10/30/19 Loc: ED Attending Dr: Ordering Physician: JUNIOR PALENCIA MD Date of Service: 10/30/19 Procedure(s): CT head/brain wo con Accession Number(s): [id number] cc: JUNIOR PALENCIA MD CT HEAD WITHOUT CONTRAST INDICATION / CLINICAL INFORMATION: Altered mental status. Patient found down. TECHNIQUE: All CT scans at this location are performed using CT dose reduction for ALARA by means of automated exposure c ontrol. COMPARISON: None available. FINDINGS: HEMORRHAGE: No evidence of intracranial hemorrhage or extra-axial fluid collection. EXTRA-AXIAL SPACES: Cortical sulci, sylvian fissures and basilar cisterns have an unremarkable appearance. VENTRICULAR SYSTEM: The ventricular system is of normal size and configuration. CEREBRAL PARENCHYMA: There is evidence of remote small deep infarction in the white matter of the left frontal lobe above the level of the lateral ventricles within the centrum semiovale. MIDLINE SHIFT OR HERNIATION: There is no mass effect. CEREBELLUM / BRAINSTEM: Brainstem and cerebellum have an unremarkable appearance. INTRACRANIAL VESSELS:No abnormalities are identified on this noncontrast head CT. ORBITS: visualized portions of the orbits have an unremarkable appearance. SOFT TISSUES of HEAD: No significant abnormality. CALVARIUM: Evaluation of bone windows reveals no abnormalities. PARANASAL SINUSES / MASTOID AIR CELLS: Paranasal sinuses are free from inflammatory muco humera disease. Mastoid air cells are normally pneumatized. IMPRESSION: 1. No acute intracranial abnormality. 2. 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 Signer Name: Adam Fernandes MD Signed: 10/30/2019 7:28 PM Workstation Name: [id number] Transcribed By: Dictated By: Adam Fernandes MD Electronically Authenticated By: Adam Fernandes MD Signed Date/Time: 10/30/191927 DD/ 19 TD/TT: Print Report Referring Physician: JUNIOR PALENCIA Patient Name: ALESSIA HATCH Date of : 1975 Sex: Male Report Date: 2019-10-30 Report Status: Finalized Findings [facility] [address] [place] [id number] Cat Scan Report Signed Patient: ALESSIA HATCH MR#: [id number] : 1975 Acct:[id number] Age/Sex: 43 / M ADM Date: 10/30/19 Loc: ED [place] [address]: Ordering Physician: JUNIOR PALENCIA MD Date of Service: 10/30/19 Procedure(s): CT cervical spine wo con Accession Number(s): [id number] cc: JUNIOR PALENCIA MD CT CERVICAL SPINE WITHOUT CONTRAST INDICATION / CLINICAL INFORMATION: Patient found down. TECHNIQUE: Axial CT images were obtained through the cervical spine. Sagittal and coronal reformatted images were produced. All CT scans at this location are performed using CT dose reduction for ALARA by means of automated exposure control. COMPARISON: None available. FINDINGS: ALIGNMENT: No significant abnormality. VERTEBRAE: Prominent anterior osteophyte formation is noted at inferior endplate C4 and superior endplate C5. DISC SPACES: Loss of disc height is demonstrated at the C5-6 level. Disc height is fairly well maintained elsewhere. INDIVIDUAL LEVEL ANALYSIS: C2-3:No abnormality. C3-4: Small central disc protrusion is identified. Central spinal canal and neuroforamina are adequately maintained. C4-5: Prominent anterior oste ophyte formation is noted. Small central disc protrusion is present without compromise the spinal canal. Central spinal canal and neuroforamina are adequately maintained. C5-6: Disc height is a manifestation of disc desiccation at this level. Facet and uncovertebral arthritic changes are present resulting in moderate bilateral foraminal stenosis at the C6 nerve root level. Central spinal canal remains adequate in size. C6-7:No abnormality. C7-T1:No abnormality. CRANIOCERVICAL JUNCTION:No significant abnormality. SPINAL CANAL: Central spinal canal is adequately maintained throughout. PARASPINAL SOFT TISSUES: No significant abnormality. ADDITIONAL FINDINGS: None. LUNG APICES: No significant abnormality of visualized lungs. IMPRESSION: 1. No indication of fracture or traumatic subluxation. 2. Degenerative changes at the C5-6 level are associated with moderate bilateral foraminal stenosis. Signer Name: Adam Fernandes MD Signed: 10/30/2019 7:31 PM Workstation Name: [id number] Transcribed By: Dictated By: Adam Fernandes MD Electronically Authenticated By: Adam Fernandes MD Signed Date/Time: 10/30/191930 DD/ 27 TD/TT: ED Disposition Clinical Impression: Alcohol intoxication Disposition: DC-01 TO HOME OR SELFCARE Is pt being admited?: No Does the pt Need Aspirin: No Condition: Good Instructions: Alcohol Intoxication (ED) Referrals: PRIMARY CARE, [Primary Care Provider] - 3-5 Days <RUBEN BUCHANAN - Last Filed: 10/31/19 19:11> ED Review of Systems ROS: Stated complaint: ETOH Other details as noted in HPI ED Course Vital Signs 10/30/19 10/30/19 10/30/19 18:30 18:46 19:20 Temperature 97.3 F L Pulse Rate 78 Respiratory 16 Rate Blood Pressure 122/73 120/89 120/89 Blood Pressure [Right] O2 Sat by Pulse 98 98 Oximetry 10/30/19 10/30/19 10/30/19 22:54 23:00 23:15 Temperature Pulse Rate 113 H Respiratory 10 L Rate Blood Pressure 120/89 129/85 127/86 Blood Pressure [Right] O2 Sat by Pulse 95 97 Oximetry 10/30/19 10/30/19 10/31/19 23:31 23:46 00:00 Temperature Pulse Rate Respiratory Rate Blood Pressure 127/86 149/117 129/96 Blood Pressure [Right] O2 Sat by Pulse 96 Oximetry 10/31/19 10/31/19 10/31/19 00:16 00:30 00:45 Temperature Pulse Rate Respiratory Rate Blood Pressure 116/79 123/87 120/80 Blood Pressure [Right] O2 Sat by Pulse Oximetry 10/31/19 10/31/19 10/31/19 01:00 01:15 01:30 Temperature Pulse Rate Respiratory Rate Blood Pressure 116/86 124/84 129/87 Blood Pressure [Right] O2 Sat by Pulse Oximetry 10/31/19 10/31/19 10/31/19 01:45 02:00 02:15 Temperature Pulse Rate Respiratory Rate Blood Pressure 103/82 129/103 130/108 Blood Pressure [Right] O2 Sat by Pulse Oximetry 10/31/19 10/31/19 10/31/19 02:32 02:45 03:02 Temperature Pulse Rate Respiratory Rate Blood Pressure 143/102 127/104 154/102 Blood Pressure [Right] O2 Sat by Pulse Oximetry 10/31/19 10/31/19 10/31/19 03:16 03:30 03:45 Temperature Pulse Rate Respiratory Rate Blood Pressure 145/97 128/88 108/87 Blood Pressure [Right] O2 Sat by Pulse Oximetry 10/31/19 10/31/19 10/31/19 04:00 04:15 04:30 Temperature Pulse Rate Respiratory Rate Blood Pressure 127/92 134/95 118/75 Blood Pressure [Right] O2 Sat by Pulse Oximetry 10/31/19 10/31/19 10/31/19 04:46 05:00 05:15 Temperature Pulse Rate Respiratory Rate Blood Pressure 111/75 119/78 120/79 Blood Pressure [Right] O2 Sat by Pulse Oximetry 10/31/19 10/31/19 10/31/19 05:31 05:45 06:00 Temperature Pulse Rate Respiratory Rate Blood Pressure 114/92 117/77 117/78 Blood Pressure [Right] O2 Sat by Pulse Oximetry 10/31/19 10/31/19 10/31/19 06:15 06:30 06:45 Temperature Pulse Rate Respiratory Rate Blood Pressure 107/70 107/72 112/78 Blood Pressure [Right] O2 Sat by Pulse Oximetry 10/31/19 10/31/19 10/31/19 07:00 07:15 07:30 Temperature Pulse Rate Respiratory Rate Blood Pressure 118/74 105/74 105/72 Blood Pressure [Right] O2 Sat by Pulse Oximetry 10/31/19 10/31/19 10/31/19 07:45 08:01 08:15 Temperature Pulse Rate 115 H Respiratory 22 Rate Blood Pressure 107/74 118/70 Blood Pressure 138/72 [Right] O2 Sat by Pulse 97 Oximetry 10/31/19 10/31/19 10/31/19 08:16 08:31 08:47 Temperature Pulse Rate Respiratory Rate Blood Pressure 108/72 101/65 125/104 Blood Pressure [Right] O2 Sat by Pulse Oximetry 10/31/19 10/31/19 09:17 13:59 Temperature 99.4 F Pulse Rate 118 H Respiratory 16 Rate Blood Pressure 139/112 132/88 Blood Pressure [Right] O2 Sat by Pulse 97 Oximetry ED Medical Decision Making - Lab Data Result diagrams: 10/30/19 19:05 10/30/19 19:05 - Medical Decision Making I personally examined Mr. Hatch. presented to the ER for alcohol intoxication. Patient has been evaluated by our psychiatric team and patient given outpatient referral for alcohol rehab. Patient is alert, oriented x3 in no acute distress. Patient denied any suicidal or homicidal ideation. Patient also denied any visual or auditory hallucination. Patient is medically and psychiatrically stable for discharge. Patient advised to follow-up with his primary care physician in the next 2 to 3 days. Critical care attestation.: If time is entered above; I have spent that time in minutes in the direct care of this critically ill patient, excluding procedure time.
[2019-10-30 18:38] VITALS: BP 122/73
[2019-10-30 19:18] LABS: Hematocrit 53.1 % (35.5-45.6); Hemoglobin 17.8 gm/dl (11.8-15.2)
--- NOTE | 2019-10-30 19:32 | Cat Scan Report ---
CT HEAD WITHOUT CONTRAST INDICATION / CLINICAL INFORMATION: Altered mental status. Patient found down. TECHNIQUE: All CT scans at this location are performed using CT dose reduction for ALARA by means of automated e xposure control. COMPARISON: None available. FINDINGS: HEMORRHAGE: No evidence of intracranial hemorrhage or extra-axial fluid collection. EXTRA-AXIAL SPACES: Cortical sulci, sylvian fissures and basilar cisterns have an unremarkable appear ance. VENTRICULAR SYSTEM: The ventricular system is of normal size and configuration. CEREBRAL PARENCHYMA: There is evidence of remote small deep infarction in the white matter of the lef t frontal lobe above the level of the lateral ventricles within the centrum semiovale. MIDLINE SHIFT OR HERNIATION: There is no mass effect. CEREBELLUM / BRAINSTEM: Brainstem and cerebellum have an unremarkable appearance. INTRACRANIAL VESSELS:No abnormalities are identified on this noncontrast head CT. ORBITS: visualized portions of the orbits have an unremarkable appearance. SOFT TISSUES of HEAD: No significant abnormality. CALVARIUM: Evaluation of bone windows reveals no abnormalities. PARANASAL SINUSES / MASTOID AIR CELLS: Paranasal sinuses are free from inflammatory mucosal disease. Mastoid air cells are normally pneumatized. IMPRESSION: 1. No acute intracranial abnormality. 2. 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 Signer Name: Adam Fernandes MD Signed: 10/30/2019 7:28 PM Workstation Name: [email or web address]
[2019-10-30 19:35] LABS: BUN/Creatinine Ratio 13; Blood Urea Nitrogen 9 mg/dL (9-20); Calcium 9.2 mg/dL (8.4-10.2); Hemolysis Index 95
--- NOTE | 2019-10-30 19:35 | Cat Scan Report ---
CT CERVICAL SPINE WITHOUT CONTRAST INDICATION / CLINICAL INFORMATION: Patient found down. TECHNIQUE: Axial CT images were obtained through the cervical spine. Sagittal and coronal reformatted images wer e produced. All CT scans at this location are performed using CT dose reduction for ALARA by means of automated exposure control. COMPARISON: None available. FINDINGS: ALIGNMENT: No significant abnormality. VERTEBRAE: Prominent anterior osteophyte formation is noted at inferior endplate C4 and superior endp late C5. DISC SPACES: Loss of disc height is demonstrated at the C5-6 level. Disc height is fairly well mainta ined elsewhere. INDIVIDUAL LEVEL ANALYSIS: C2-3:No abnormality. C3-4: Small central disc protrusion is identified. Central spinal canal and neuroforamina are adequat riccardo maintained. C4-5: Prominent anterior osteophyte formation is noted. Small central disc protrusion is present with out compromise the spinal canal. Central spinal canal and neuroforamina are adequately maintained. C5-6: Disc height is a manifestation of disc desiccation at this level. Facet and uncovertebral arthr itic changes are present resulting in moderate bilateral foraminal stenosis at the C6 nerve root leve l. Central spinal canal remains adequate in size. C6-7:No abnormality. C7-T1:No abnormality. CRANIOCERVICAL JUNCTION:No significant abnormality. SPINAL CANAL: Central spinal canal is adequately maintained throughout. PARASPINAL SOFT TISSUES: No significant abnormality. ADDITIONAL FINDINGS: None. LUNG APICES: No significant abnormality of visualized lungs. IMPRESSION: 1. No indication of fracture or traumatic subluxation. 2. Degenerative changes at the C5-6 level are associated with moderate bilateral foraminal stenosis. Signer Name: Adam Fernandes MD Signed: 10/30/2019 7:31 PM Workstation Name: [id number]
[2019-10-30] MEDS: LORazepam 2 MG TAB PO PRN (20:33)
[2019-10-31] MEDS ORDERED: DEXTROSE 50% IN WATER (25GM) 50 ML SYRINGE IV PRN (00:05)
[2019-10-31] MEDS ORDERED: DEXTROSE 50% IN WATER (25GM) 50 ML VIAL IV ONE (00:05)
[2019-10-31] MEDS: LORazepam 2 MG TAB PO PRN ×4 (00:36→16:38)
[2019-10-31] MEDS ORDERED: THIAMINE 100 MG TAB PO SCH (10:00)
[2019-10-31] MEDS ORDERED: MULTIVITAMINS ,THERAPEUTIC TAB PO SCH (10:00)
== END 2019-10-31 19:44 | disposition home or self-care (01) ==
LOC: ED 18:12
DX: F10.120 Alcohol abuse with intoxication, uncomplicated (principal); F17.200 Nicotine dependence, unspecified, uncomplicated; Z79.899 Other long term (current) drug therapy; F14.10 Cocaine abuse, uncomplicated
CPT/HCPCS: 36415; 70450; 72125; 80048; 82550; 82962; 83735; 85014; 85018; 85049; 96374; 96375; 99285; J2060; 80320; G0480

== ENCOUNTER 2019-11-12 21:08 | Inpatient (IN) | payer OTHER ==
[2019-11-12] MEDS ORDERED: chlordiazePOXIDE 25 MG CAP PO PRN (22:35)
[2019-11-12] MEDS ORDERED: THIAMINE 100 MG, FOLIC ACID 1 MG, MULTIPLE VITAMIN INJ, ADULT 10 ML in SODIUM CHLORIDE ... IV ONE (22:37)
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
[2019-11-12 22:41] LABS: Bilirubin,Urine NEG (Negative); Blood,Urine SM (Negative); Color,Urine Yellow (Yellow); Mucus,Urine FEW /HPF; Protein,Urine <15 mg/dL mg/dL (Negative); Urobilinogen,Urine < 2.0 mg/dL (<2.0)
[2019-11-12 22:46] LABS: Amphetamine Screen,Urine PRESUMPTIVE NEGATIVE; Benzodiazepines Screen,Urine PRESUMPTIVE NEGATIVE; Cannabinoid Screen,Urine PRESUMPTIVE NEGATIVE; Methadone Screen,Urine PRESUMPTIVE NEGATIVE; Opiate Screen,Urine PRESUMPTIVE NEGATIVE
[2019-11-12] MEDS: LORazepam 2 MG/ML VIAL IV PRN (22:49)
[2019-11-12] MEDS ORDERED: THIAMINE 100 MG TAB PO ONE (23:00)
[2019-11-12] MEDS ORDERED: FOLIC ACID 1 MG, MULTIPLE VITAMIN INJ, ADULT 10 ML in SODIUM CHLORIDE 0.9% 1000 ML 1,00... IV ONE (23:00)
[2019-11-12 23:01] LABS: Basophils % (Auto) 0.6 % (0.0-1.8); Eosinophils # (Auto) 0.1 K/mm3 (0.0-0.4); Hematocrit 42.5 % (35.5-45.6); Hemoglobin 14.8 gm/dl (11.8-15.2); Lymphocytes # (Auto) 1.7 K/mm3 (1.2-5.4); Lymphocytes % (Auto) 27.2 % (13.4-35.0); Mean Corpuscular HGB Conc 35 % (32-34); Mean Corpuscular Volume 100 fl (84-94); Monocytes # (Auto) 0.5 K/mm3 (0.0-0.8); Monocytes % (Auto) 8.5 % (0.0-7.3); Platelet Count 695 K/mm3 (140-440); Red Blood Count 4.23 M/mm3 (3.65-5.03)
[2019-11-12 23:02] LABS: Cocaine Screen,Urine PRESUMPTIVE POSITIVE
[2019-11-12 23:37] LABS: BUN/Creatinine Ratio 6; Blood Urea Nitrogen 4 mg/dL (9-20); Calcium 9.1 mg/dL (8.4-10.2); Hemolysis Index 2
[2019-11-13] MEDS ORDERED: LORazepam 2 MG/ML VIAL IV ONE ×3 (01:04→07:07)
[2019-11-13] MEDS ORDERED: SODIUM CHLORIDE 0.9% 1000 ML 1,000 ML IV ONE ×2 (01:05)
[2019-11-13] MEDS ORDERED: FOLIC ACID 1 MG, MULTIPLE VITAMIN INJ, ADULT 10 ML in SODIUM CHLORIDE 0.9% 1000 ML 1,00... IV ONE (07:30)
[2019-11-13] MEDS ORDERED: THIAMINE 100 MG TAB PO ONE (08:00)
--- NOTE | 2019-11-13 08:36 | Cat Scan Report ---
CT head/brain wo con INDICATION / CLINICAL INFORMATION: 43 years Male; MAIN: trauma AMS compare to previous ALCOHOL WITHDRAWL. TECHNIQUE: Routine CT head without contrast. All CT scans at this location are performed using CT dos e reduction for ALARA by means of automated exposure control. COMPARISON: None. FINDINGS: BRAIN / INTRACRANIAL CONTENTS: No acute hemorrhage, mass effect, midline shift, hydrocephalus, or acu te, large territorial infarct. No chronic infarct or atrophy appreciated. Mild, nonspecific white mat ter disease noted. CRANIOCERVICAL JUNCTION: No significant abnormality. ORBITS: No significant abnormality of visualized orbits. SINUSES / MASTOIDS: There is significant mucosal thickening in the ethmoids and right frontal sinus. ADDITIONAL FINDINGS: Subcutaneous soft tissue swelling is seen in the right frontal region. No signs of underlying calvarial fracture identified. IMPRESSION: 1. No focal mass, intracranial hemorrhage, hydrocephalus, or acute, large territorial infarct. Signer Name: Subhash Torres MD, III Signed: 11/13/2019 8:32 AM Workstation Name: [id number]
[2019-11-13] MEDS: LORazepam 2 MG/ML VIAL IV PRN ×6 (08:53→22:37)
--- NOTE | 2019-11-13 14:31 | History and Physical Report ---
History of Present Illness Date of examination: 11/13/19 Date of admission: 11/13/2019 Chief complaint: Suicidal ideation, alcohol intoxication History of present illness: 43-year-old male patient well-known to our service multiple admissions in the past with history of chronic alcohol use episodes of alcohol withdrawals Presented to the emergency room with history suicidal ideation, had alcohol 6 hours ago, with tremulousness and generalized weakness Patient was evaluated in the ED placed on 1013 status, consulted psych Patient complains of nausea no vomiting and tremors Denies headache dizziness Denies chest pain shortness of breath Past History Past Medical History: other (Bipolar disorder, alcohol use, neuropathy) Past Surgical History: No surgical history Social history: smoking, alcohol abuse, full code, other (Cocaine abuse) Family history: no significant family history Medications and Allergies Allergies Allergy/AdvReac Type Severity Reaction Status Date / Time Penicillins Allergy Anaphylaxis Verified 04/10/16 02:36 Sulfa (Sulfonamide Allergy Anaphylaxis Verified 04/10/16 02:36 Antibiotics) Home Medications Medication Instructions Recorded Confirmed Last Taken Type Calcium Carbonate/Simethicone 1 tab PO PRN PRN 04/10/16 12/23/16 Unknown History [Paulina-[place] Heartburn+Gas] Epitol 200 mg PO BID 04/10/16 12/23/16 Unknown History Gabapentin 300 mg PO DAILY 04/10/16 12/23/16 Unknown History Prazosin 1 mg PO HS 04/10/16 12/23/16 Unknown History diphenhydrAMINE [Benadryl CAP] 25 mg PO Q8HR PRN 04/10/16 12/23/16 Unknown History Folic Acid [Folvite] 1 mg PO QDAY #30 tablet 04/14/16 12/23/16 Unknown Rx Thiamine [Vitamin B-1] 100 mg PO QDAY #30 tablet 04/14/16 12/23/16 Unknown Rx Famotidine [Pepcid] 10 mg PO BID #14 tablet 11/04/19 Unknown Rx Folic Acid [Folvite] 1 mg PO QDAY #30 tablet 11/04/19 Unknown Rx Multivitamin [Daily Multiple 1 each PO DAILY #30 tablet 11/04/19 Unknown Rx Vitamin] Thiamine [Vitamin B-1] 100 mg PO QDAY #30 tablet 11/04/19 Unknown Rx cephALEXin [Keflex] 500 mg PO Q8HR #6 capsule 11/04/19 Unknown Rx chlordiazePOXIDE [Librium] 25 mg PO Q8H #14 capsule 11/04/19 Unknown Rx Active Meds: Active Medications Lorazepam (Ativan) 2 mg IV Q1HR PRN PRN Reason: CIWA-Ar 8-15 Last Admin: 11/13/19 13:49 Dose: 2 mg Documented by: Lorazepam (Ativan) 4 mg IV Q15MIN PRN PRN Reason: CIWA-Ar >25 Last Admin: 11/12/19 22:49 Dose: 4 mg Documented by: Lorazepam (Ativan) 4 mg IV Q1H PRN PRN Reason: CIWA-Ar 16-25 Review of Systems Constitutional: weakness, lethargy, no weight loss, no weight gain Ears, nose, mouth and throat: no nasal congestion, no nasal discharge Cardiovascular: no chest pain, no orthopnea, no shortness of breath Respiratory: no cough, no shortness of breath Gastrointestinal: no abdominal pain, no nausea, no vomiting Genitourinary Male: no dysuria, no hematuria Musculoskeletal: no myalgias, no arthritis Integumentary: no rash, no lesions Neurological: weakness, parathesias Psychiatric: no anxiety, no depression Endocrine: no cold intolerance, no heat intolerance Hematologic/Lymphatic: no easy bruising, no easy bleeding Allergic/Immunologic: no urticaria, no allergic rhinitis Exam - Constitutional Vitals: Temp Pulse Resp BP Pulse Ox 99.4 F 96 H 15 116/76 93 11/13/19 09:10 11/13/19 12:00 11/13/19 12:00 11/13/19 12:00 11/13/19 08:00 General appearance: Present: mild distress, cachectic, other (Tremulousness) - EENT Eyes: Present: PERRL, EOM intact - Neck Neck: Present: supple - Respiratory Respiratory: bilateral: diminished, negative: rales, rhonchi, wheezing - Cardiovascular Rhythm: regular Heart Sounds: Present: S1 & S2 - Extremities Extremities: no ischemia, No edema - Abdominal General gastrointestinal: Present: soft, non-tender, non-distended, normal bowel sounds - Integumentary Integumentary: Present: clear, warm - Musculoskeletal Musculoskeletal: generalized weakness - Psychiatric Psychiatric: appropriate mood/affect, cooperative, other (Tremulousness) - Neurologic Neurologic: moves all extremities, other (Withdrawal symptoms) Results - Labs CBC & Chem 7: 11/12/19 22:44 11/12/19 22:44 Labs: Abnormal lab results 11/12/19 11/12/19 11/12/19 Range/Units 22:44 22:44 22:44 MCV (84-94) fl MCH (28-32) pg MCHC (32-34) % Plt Count (140-440) K/mm3 [place] % (Auto) (0.0-7.3) % BUN 4 L (9-20) mg/dL Creatinine 0.7 L (0.8-1.5) mg/dL Glucose 155 H (75-100) mg/dL Magnesium (1.7-2.3) mg/dL Salicylates < 0.3 L (2.8-20.0) mg/dL Acetaminophen < 5.0 L (10.0-30.0) ug/mL Plasma/Serum Alcohol (0-0.07) % 11/12/19 11/12/19 11/12/19 Range/Units 22:44 22:44 22:44 MCV 100 H (84-94) fl MCH 35 H (28-32) pg MCHC 35 H (32-34) % Plt Count 695 H (140-440) K/mm3 [place] % (Auto) 8.5 H (0.0-7.3) % BUN (9-20) mg/dL Creatinine (0.8-1.5) mg/dL Glucose (75-100) mg/dL Magnesium 2.50 H (1.7-2.3) mg/dL Salicylates (2.8-20.0) mg/dL Acetaminophen (10.0-30.0) ug/mL Plasma/Serum Alcohol 0.24 H (0-0.07) % Assessment and Plan --Suicidal ideation; suicidal watch 1013 status, psych consult, supportive care --Alcohol intoxication; IV fluids Thiamine folic acid multivitamins Monitor for withdrawal symptoms --Chronic alcohol use; Strongly advised to quit alcohol intake Patient needs alcohol rehabilitation upon discharge --Alcohol withdrawal symptoms; [facility] protocol, IV fluids and supportive care --Substance abuse including cocaine abuse; Counseling strongly advised to quit recreational drugs tobacco and alcohol use --DVT prophylaxis Lovenox Monitor closely and adjust the management as needed Plan of care reviewed with the patient and his nurse I spent 50 minutes coordinating this admission
[2019-11-13] MEDS ORDERED: LORazepam 2 MG/ML VIAL ONE ×3 (16:52→20:40)
[2019-11-13] MEDS ORDERED: ACETAMINOPHEN 325 MG TAB PO PRN (18:26)
[2019-11-13] MEDS ORDERED: KETOROLAC 10 MG TAB PO PRN (18:27)
[2019-11-13] MEDS ORDERED: ACETAMINOPHEN 325 MG TAB ONE (18:35)
[2019-11-13] MEDS: FAMOTIDINE 10 MG TAB PO SCH (22:40)
[2019-11-13] MEDS: PRAZOSIN 1 MG CAP PO SCH (22:41)
[2019-11-14] MEDS: KETOROLAC 30 MG/1 ML INJ IV SCH ×5 (01:06→23:50)
[2019-11-14] MEDS: LORazepam 2 MG/ML VIAL IV PRN ×5 (04:13→21:03)
[2019-11-14 05:20] LABS: Alanine Aminotransferase 14 units/L (7-56); Albumin 3.1 g/dL (3.9-5); BUN/Creatinine Ratio 17; Blood Urea Nitrogen 10 mg/dL (9-20); Calcium 8.3 mg/dL (8.4-10.2); Hemolysis Index 4
--- NOTE | 2019-11-14 07:59 | Consultation ---
History of Present Illness - Reason for Consult Consult date: 11/14/19 Reason for consult: suicidal w/plan, alcohol withdrawal - Chief Complaint Chief complaint: Suicidal ideation, alcohol intoxication - History of Present Psychiatric Illness Danilo Hatch is a 43y/o male patient who states he's been "suicidal for days." During my interview with the patient, he is lying in bed with his eyes closed. He is a/o x 3. He appears irritable at times. He has a sitter at bedside. The patient describes his mood as "crappy and not good." The patient says he has a plan to "step out in front of traffic." He denies any suicide attempts in the past. He says he sees, "bugs, things breeding, and people." The patient also states he "hears voices." When asking the patient what the voices were saying, he replied, "just talking." He says, "I can't get any sleep cause people keep waking me up." He then tells me, "the number 2 of Ativan is not doing it. I have a very high tolerance." He denies seeing a psychiatrist or ever seeing one. He says he was diagnosed in the past with "bipolar and depression." The patient says he was "treated at detox facilities, but I never saw a psychiatrist." He also denies any current psych medication use. The patient states he uses "crack and alcohol." He says he sleeps "on and off" and says his appetite is "good." PAST PSYCHIATRIC HISTORY: Diagnoses: Depression and bipolar Suicide attempts or Self-harm behavior: Denies Prior psychiatric hospitalizations: Denies Substance Abuse history: Crack and alcohol Previous psychiatric medications tried: Denies Outpatient treatment: Denies PAST MEDICAL HISTORY: None reported Family Psychiatric History: None reported or documented SOCIAL HISTORY Current living status: Homeless Employment status: Unemployed Highest level of education: some college Marital status: Legal history: Denies History of abuse: Denies REVIEW OF SYSTEMS Constitutional: Negative for weight loss ENT: Negative for stridor Respiratory: Negative for cough or hemoptysis All other systems reviewed and are negative MENTAL STATUS EXAMINATION General Appearance: Dressed appropriately Behavior: Irritable at times, cooperative Mood: "crappy, not good" Affect: Congruent with stated mood Speech: Normal tone and pace Thought Process: Goal directed Thought Content: Suicidal Ideation: Yes Homicidal Ideation: Denies Hallucinations: A/V Delusions: None elicited Insight and Judgment: Limited Memory/Cognition: Limited Assessment Drug Induced Mood Disorder Bipolar Disorder, Current Episode Depressed, w/Psychotic Features MEDICATIONS: Continue CIWA Seroquel 25mg po BID Depakote DR 125mg po BID Melatonin 5mg po qhs prn insomnia Trazodone 50mg po qhs Prozac 10mg po daily Risks, benefits and alternatives of medications discussed with the patient, questions answered and consent obtained from patient. PSYCHOTHERAPY: Supportive psychotherapy provided MEDICAL: Per primary team DELIRIUM PRECAUTIONS: Please re-orient patient frequently, keep lights on during the day, and minimize benzodiazepines and opiates as these medications could worsen patient's confusion. PENSION MANAGER: Per Medical Team DISPOSITION: The patient meets the requirement for acute inpatient psychiatric treatment. He may transfer to an acute psychiatric facility once medically cleared. The plan was discussed with the patient, including benefits and possible side effects of prescribed medications. He verbalized agreement and understanding Will continue to follow until the patient is improved enough for discharge or transferred. Thank you for the consult. Please contact with any questions and/or concerns. Medications and Allergies Allergies Allergy/AdvReac Type Severity Reaction Status Date / Time Penicillins Allergy Anaphylaxis Verified 04/10/16 02:36 Sulfa (Sulfonamide Allergy Anaphylaxis Verified 04/10/16 02:36 Antibiotics) Home Medications Medication Instructions Recorded Confirmed Last Taken Type Calcium Carbonate/Simethicone 1 tab PO PRN PRN 04/10/16 12/23/16 Unknown History [Paulina-[place] Heartburn+Gas] Epitol 200 mg PO BID 04/10/16 12/23/16 Unknown History Gabapentin 300 mg PO DAILY 04/10/16 12/23/16 Unknown History Prazosin 1 mg PO HS 04/10/16 12/23/16 Unknown History diphenhydrAMINE [Benadryl CAP] 25 mg PO Q8HR PRN 04/10/16 12/23/16 Unknown History Folic Acid [Folvite] 1 mg PO QDAY #30 tablet 04/14/16 12/23/16 Unknown Rx Thiamine [Vitamin B-1] 100 mg PO QDAY #30 tablet 04/14/16 12/23/16 Unknown Rx Famotidine [Pepcid] 10 mg PO BID #14 tablet 11/04/19 Unknown Rx Folic Acid [Folvite] 1 mg PO QDAY #30 tablet 11/04/19 Unknown Rx Multivitamin [Daily Multiple 1 each PO DAILY #30 tablet 11/04/19 Unknown Rx Vitamin] Thiamine [Vitamin B-1] 100 mg PO QDAY #30 tablet 11/04/19 Unknown Rx cephALEXin [Keflex] 500 mg PO Q8HR #6 capsule 11/04/19 Unknown Rx chlordiazePOXIDE [Librium] 25 mg PO Q8H #14 capsule 11/04/19 Unknown Rx Active Meds: Active Medications Acetaminophen (Tylenol) 650 mg PO Q4H PRN PRN Reason: Pain, Mild (1-3) Last Admin: 11/13/19 18:35 Dose: 650 mg Documented by: Famotidine (Pepcid) 10 mg PO BID [facility] Last Admin: 11/13/19 22:40 Dose: 10 mg Documented by: Folic Acid (Folvite) 1 mg PO QDAY [facility] Gabapentin (Gabapentin) 300 mg PO DAILY [facility] Ketorolac Tromethamine (Toradol) 15 mg IV Q6HR [facility] Stop: 11/19/19 00:00 Last Admin: 11/14/19 06:39 Dose: 15 mg Documented by: Ketorolac Tromethamine (Toradol) 10 mg PO Q6H PRN PRN Reason: Pain, Mild (1-3) Stop: 11/18/19 18:26 Lorazepam (Ativan) 2 mg IV Q1HR PRN PRN Reason: CIWA-Ar 8-15 Last Admin: 11/13/19 20:45 Dose: 2 mg Documented by: Lorazepam (Ativan) 4 mg IV Q15MIN PRN PRN Reason: CIWA-Ar >25 Last Admin: 11/14/19 04:13 Dose: 4 mg Documented by: Lorazepam (Ativan) 4 mg IV Q1H PRN PRN Reason: CIWA-Ar 16-25 Multivitamins (Theragran Tab) 1 each PO DAILY [facility] Prazosin HCl (Prazosin) 1 mg PO HS [facility] Last Admin: 11/13/19 22:41 Dose: Not Given Documented by: Thiamine HCl (Vitamin B-1) 100 mg PO QDAY [facility] Mental Status Exam - Vital signs Last Vital Signs Temp 99.0 F 11/14/19 02:00 Pulse 83 11/14/19 04:00 Resp 16 11/14/19 04:00 BP 107/60 11/14/19 04:00 Pulse Ox 98 11/14/19 04:00 Results Result Diagrams: 11/12/19 22:44 11/14/19 04:32 Abnormal lab results 11/14/19 Range/Units 04:32 Creatinine 0.6 L (0.8-1.5) mg/dL Calcium 8.3 L (8.4-10.2) mg/dL Total Protein 6.0 L (6.3-8.2) g/dL Albumin 3.1 L (3.9-5) g/dL All other labs normal.
[2019-11-14] MEDS: GABAPENTIN 300 MG CAP PO SCH (09:56)
[2019-11-14] MEDS: FOLIC ACID 1 MG TAB PO SCH (09:56)
[2019-11-14] MEDS: QUEtiapine 25 MG TAB PO SCH ×2 (09:56→21:03)
[2019-11-14] MEDS: MULTIVITAMINS ,THERAPEUTIC TAB PO SCH (09:56)
[2019-11-14] MEDS: DIVALPROEX DR 125 MG TAB PO SCH ×2 (09:56→21:03)
[2019-11-14] MEDS: FAMOTIDINE 10 MG TAB PO SCH ×2 (09:56→21:03)
[2019-11-14] MEDS: THIAMINE 100 MG TAB PO SCH (09:56)
[2019-11-14] MEDS ORDERED: MULTIVITAMIN PO SCH (10:00)
[2019-11-14] MEDS ORDERED: FLUoxetine 10 MG TAB PO SCH (10:00)
[2019-11-14] MEDS ORDERED: ONDANSETRON 4 MG/2 ML INJ IV PRN (10:49)
--- NOTE | 2019-11-14 18:52 | Progress Note ---
Assessment and Plan Assessment and plan: --Suicidal ideation; suicidal watch 1013 status, psych consult, supportive care Psych evaluation noted and appreciated --Alcohol intoxication; IV fluids Thiamine folic acid multivitamins Monitor for withdrawal symptoms --Chronic alcohol use; Strongly advised to quit alcohol intake Patient needs alcohol rehabilitation upon discharge --Alcohol withdrawal symptoms; [place] protocol, IV fluids and supportive care --Substance abuse including cocaine abuse; Counseling strongly advised to quit recreational drugs tobacco and alcohol use --DVT prophylaxis Lovenox Monitor closely and adjust the management as needed Plan of care reviewed with the patient and his nurse History Interval history: Patient seen and examined at the bedside Patient's chart and medications reviewed Admitted with suicidal ideation, 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 Patient feels slightly better, refuses to talk Mild tremulousness Vital signs reviewed Hospitalist Physical - Constitutional Vitals: Temp Pulse Resp BP Pulse Ox 98.2 F 101 H 20 104/80 95 11/14/19 12:11 11/14/19 16:00 11/14/19 12:11 11/14/19 12:11 11/14/19 12:11 General appearance: Present: mild distress, cachectic, other (Tremulousness) - EENT Eyes: Present: PERRL, EOM intact - Neck Neck: Present: supple, normal ROM - Respiratory Respiratory effort: normal Respiratory: bilateral: diminished, negative: rales, rhonchi, wheezing - Cardiovascular Rhythm: regular Heart Sounds: Present: S1 & S2 - Extremities Extremities: no ischemia, No edema - Abdominal General gastrointestinal: soft, non-tender, non-distended, normal bowel sounds - Integumentary Integumentary: Present: clear, warm - Psychiatric Psychiatric: appropriate mood/affect, other (Tremulous) - Neurologic Neurologic: moves all extremities Results - Labs CBC & Chem 7: 11/12/19 22:44 11/14/19 04:32 Labs: Laboratory Last Values WBC 6.2 K/mm3 (4.5-11.0) 11/12/19 22:44 RBC 4.23 M/mm3 (3.65-5.03) 11/12/19 22:44 Hgb 14.8 gm/dl (11.8-15.2) 11/12/19 22:44 Hct 42.5 % (35.5-45.6) 11/12/19 22:44 MCV 100 fl (84-94) H 11/12/19 22:44 MCH 35 pg (28-32) H 11/12/19 22:44 MCHC 35 % (32-34) H 11/12/19 22:44 RDW 15.0 % (13.2-15.2) 11/12/19 22:44 Plt Count 695 K/mm3 (140-440) H 11/12/19 22:44 Lymph % (Auto) 27.2 % (13.4-35.0) 11/12/19 22:44 [place] % (Auto) 8.5 % (0.0-7.3) H 11/12/19 22:44 Eos % (Auto) 1.0 % (0.0-4.3) 11/12/19 22:44 Baso % (Auto) 0.6 % (0.0-1.8) 11/12/19 22:44 Lymph # 1.7 K/mm3 (1.2-5.4) 11/12/19 22:44 [place] # 0.5 K/mm3 (0.0-0.8) 11/12/19 22:44 Eos # 0.1 K/mm3 (0.0-0.4) 11/12/19 22:44 Baso # 0.0 K/mm3 (0.0-0.1) 11/12/19 22:44 Seg Neutrophils % 62.7 % (40.0-70.0) 11/12/19 22:44 Seg Neutrophils # 3.9 K/mm3 (1.8-7.7) 11/12/19 22:44 Sodium 138 mmol/L (137-145) 11/14/19 04:32 Potassium 4.1 mmol/L (3.6-5.0) 11/14/19 04:32 Chloride 99.7 mmol/L (98-107) 11/14/19 04:32 Carbon Dioxide 26 mmol/L (22-30) 11/14/19 04:32 Anion Gap 16 mmol/L 11/14/19 04:32 BUN 10 mg/dL (9-20) 11/14/19 04:32 Creatinine 0.6 mg/dL (0.8-1.5) L 11/14/19 04:32 Estimated GFR > 60 ml/min 11/14/19 04:32 BUN/Creatinine Ratio 17 % 11/14/19 04:32 Glucose 91 mg/dL (75-100) 11/14/19 04:32 Calcium 8.3 mg/dL (8.4-10.2) L 11/14/19 04:32 Phosphorus 3.30 mg/dL (2.5-4.5) 11/14/19 04:32 Magnesium 2.10 mg/dL (1.7-2.3) 11/14/19 04:32 Total Bilirubin 0.30 mg/dL (0.1-1.2) 11/14/19 04:32 AST 21 units/L (5-40) 11/14/19 04:32 ALT 14 units/L (7-56) 11/14/19 04:32 Alkaline Phosphatase 95 units/L (35-129) 11/14/19 04:32 Ammonia 31.0 umol/L (25-60) 11/13/19 07:53 Total Creatine Kinase 169 units/L (55-170) 11/12/19 22:44 Total Protein 6.0 g/dL (6.3-8.2) L 11/14/19 04:32 Albumin 3.1 g/dL (3.9-5) L 11/14/19 04:32 Albumin/Globulin Ratio 1.1 % 11/14/19 04:32 Urine Color Yellow (Yellow) 11/12/19 22:08 Urine Turbidity Clear (Clear) 11/12/19 22:08 Urine pH 6.0 (5.0-7.0) 11/12/19 22:08 Ur Specific [place] 1.006 (1.003-1.030) 11/12/19 22:08 Urine Protein <15 mg/dl mg/dL (Negative) 11/12/19 22:08 Urine Glucose (UA) Neg mg/dL (Negative) 11/12/19 22:08 Urine Ketones Neg mg/dL (Negative) 11/12/19 22:08 Urine Blood Sm (Negative) 11/12/19 22:08 Urine Nitrite Neg (Negative) 11/12/19 22:08 Urine Bilirubin Neg (Negative) 11/12/19 22:08 Urine Urobilinogen < 2.0 mg/dL (<2.0) 11/12/19 22:08 Ur Leukocyte Esterase Neg (Negative) 11/12/19 22:08 Urine WBC (Auto) 1.0 /HPF (0.0-6.0) 11/12/19 22:08 Urine RBC (Auto) 2.0 /HPF (0.0-6.0) 11/12/19 22:08 U Epithel Cells (Auto) < 1.0 /HPF (0-13.0) 11/12/19 22:08 Urine Mucus Few /HPF 11/12/19 22:08 Salicylates < 0.3 mg/dL (2.8-20.0) L 11/12/19 22:44 Urine Opiates Screen Presumptive negative 11/12/19 22:08 Urine Methadone Screen Presumptive negative 11/12/19 22:08 Acetaminophen < 5.0 ug/mL (10.0-30.0) L 11/12/19 22:44 Ur Barbiturates Screen Presumptive negative 11/12/19 22:08 Ur Phencyclidine Scrn Presumptive negative 11/12/19 22:08 Ur Amphetamines Screen Presumptive negative 11/12/19 22:08 U Benzodiazepines Scrn Presumptive negative 11/12/19 22:08 [place] 0.1 mmol/L (0.0-1.2) 11/13/19 07:53 Urine Cocaine Screen Presumptive positive 11/12/19 22:08 U Marijuana (THC) Screen Presumptive negative 11/12/19 22:08 Drugs of Abuse Note Disclamer 11/12/19 22:08 Plasma/Serum Alcohol 0.02 % (0-0.07) 11/13/19 05:29 Jean/IV: Voiding Method Urinal IV Catheter Type [Left INT / Saline Lock Antecubital] IV Catheter Type [Right Hand] INT / Saline Lock IV Catheter Type [Right INT / Saline Lock Antecubital] Active Medications - Current Medications Current Medications: Generic Name Dose Route Start Last Admin Trade Name Freq PRN Reason Stop Dose Admin Acetaminophen 650 mg 11/13/19 18:26 11/13/19 18:35 Tylenol PO 650 mg Q4H PRN Administration Pain, Mild (1-3) Divalproex Sodium 125 mg 11/14/19 10:00 11/14/19 09:[address] PO 125 mg BID HUNTER Administration Famotidine 10 mg 11/13/19 22:00 11/14/19 09:56 Pepcid PO 10 mg BID HUNTER Administration Fluoxetine HCl 10 mg 11/14/19 10:00 11/14/19 09:56 Prozac PO 10 mg QDAY HUNTER Administration Folic Acid 1 mg 11/14/19 10:00 11/14/19 09:56 Folvite PO 1 mg QDAY HUNTER Administration Gabapentin 300 mg 11/14/19 10:00 11/14/19 09:56 Gabapentin PO 300 mg DAILY HUNTER Administration Ketorolac Tromethamine 15 mg 11/14/19 00:00 11/14/19 17:24 Toradol IV 11/19/19 00:00 15 mg Q6HR HUNTER Administration Lorazepam 2 mg 11/12/19 22:35 11/14/19 09:57 Ativan IV 2 mg Q1HR PRN Administration CIWA-Ar 8-15 Lorazepam 4 mg 11/12/19 22:35 11/14/19 17:24 Ativan IV 4 mg Q15MIN PRN Administration CIWA-Ar >25 Lorazepam 4 mg 11/13/19 01:13 11/14/19 12:19 Ativan IV 4 mg Q1H PRN Administration CIWA-Ar 16-25 Melatonin 5 mg 11/14/19 21:00 Melatonin PO QHS PRN Sleep Multivitamins 1 each 11/14/19 10:00 11/14/19 09:56 Theragran Tab PO 1 each DAILY HUNTER Administration Ondansetron HCl 4 mg 11/14/19 10:49 11/14/19 12:24 Zofran IV 4 mg Q4H PRN Administration Nausea And Vomiting Prazosin HCl 1 mg 11/13/19 22:00 11/13/19 22:41 Prazosin PO Not Given [facility] Quetiapine Fumarate 25 mg 11/14/19 10:00 11/14/19 09:56 Seroquel PO 25 mg BID HUNTER Administration Thiamine HCl 100 mg 11/14/19 10:00 11/14/19 09:56 Vitamin B-1 PO 100 mg QDAY HUNTER Administration Trazodone HCl 50 mg 11/14/19 22:00 Desyrel PO QHS [facility]
[2019-11-14] MEDS ORDERED: MELATONIN 5 MG TAB PO PRN (21:00)
[2019-11-14] MEDS: traZODone 50 MG TAB PO SCH (21:03)
[2019-11-14] MEDS: PRAZOSIN 1 MG CAP PO SCH (21:03)
[2019-11-15] MEDS: LORazepam 2 MG/ML VIAL IV PRN ×5 (04:10→22:50)
[2019-11-15] MEDS: KETOROLAC 30 MG/1 ML INJ IV SCH ×3 (06:34→17:44)
--- NOTE | 2019-11-15 09:30 | Progress Note ---
Subjective - Reason for Consult Consult date: 11/15/19 Reason for consult: alcohol withdrawal, SI - Chief Complaint Chief complaint: The patient's medical record was reviewed and the patient's progress was discussed with the nursing staff. The nurse note states the patient has tremors, mildly anxious and sometimes slightly agitated. The patient was given Ativan per CIWA scores. The sitter at bedside says he's been anxious. During my interview with the patient this morning, he is lying in bed with the linen over his head. He arouses with tactile stimuli only. A sitter is at bedside. The patient makes poor eye contact. He is oriented x 3. He states, "I don't feel well at all. My stomach hurts and I'm nauseous." He still c/o suicidal thoughts, but states "not as much." He says he sees "little people and things moving." He says he feels "anxious." The patient states he "did not sleep well last night." REVIEW OF SYSTEMS Constitutional: Negative for weight loss ENT: Negative for stridor Respiratory: Negative for cough or hemoptysis All other systems reviewed and are negative MENTAL STATUS EXAMINATION General Appearance: Dressed appropriately Behavior: cooperative Mood: "anxious" Affect: Congruent with stated mood Speech: Normal tone and pace Thought Process: Goal directed Thought Content: Suicidal Ideation: Yes Homicidal Ideation: Denies Hallucinations: Visual Delusions: None elicited Insight and Judgment: Limited Memory/Cognition: Limited Assessment Drug Induced Mood Disorder Bipolar Disorder, Current Episode Depressed, w/Psychotic Features MEDICATIONS: Continue CIWA Increase Depakote DR 250mg po BID Increase Prozac 20mg po daily Risks, benefits and alternatives of medications discussed with the patient, questions answered and consent obtained from patient. PSYCHOTHERAPY: Supportive psychotherapy provided MEDICAL: Per primary team DELIRIUM PRECAUTIONS: Please re-orient patient frequently, keep lights on during the day, and minimize benzodiazepines and opiates as these medications could worsen patient's confusion. 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 He may transfer to an acute psychiatric facility once medically cleared. Will continue to follow until the patient is transferred or discharged. Please call with any questions or comments. Thank you for this consult. Mental Status Exam - Vital signs Last Vital Signs Temp 98.4 F 11/15/19 04:21 Pulse 69 11/15/19 04:21 Resp 16 11/15/19 04:21 BP 99/62 11/15/19 04:21 Pulse Ox 97 11/15/19 04:21
[2019-11-15] MEDS ORDERED: DIVALPROEX DR 125 MG TAB PO SCH (09:37)
[2019-11-15] MEDS ORDERED: FLUoxetine 10 MG TAB PO SCH (09:37)
[2019-11-15] MEDS: FOLIC ACID 1 MG TAB PO SCH (10:40)
[2019-11-15] MEDS: DIVALPROEX DR 250 MG TAB PO SCH ×2 (10:40→21:42)
[2019-11-15] MEDS: FAMOTIDINE 10 MG TAB PO SCH ×2 (10:40→21:42)
[2019-11-15] MEDS: FLUoxetine 20 MG CAP PO SCH (10:40)
[2019-11-15] MEDS: QUEtiapine 25 MG TAB PO SCH ×2 (10:40→21:42)
[2019-11-15] MEDS: THIAMINE 100 MG TAB PO SCH (10:40)
[2019-11-15] MEDS: MULTIVITAMINS ,THERAPEUTIC TAB PO SCH (10:40)
[2019-11-15] MEDS: GABAPENTIN 300 MG CAP PO SCH (10:40)
--- NOTE | 2019-11-15 11:10 | Progress Note ---
Assessment and Plan Assessment and plan: --Suicidal ideation; patient feels better today Alert awake oriented responding appropriately 1013 status, psych following --Alcohol intoxication; IV fluids Thiamine folic acid multivitamins Monitor for withdrawal symptoms --Chronic alcohol use; Strongly advised to quit alcohol intake Patient needs alcohol rehabilitation upon discharge --Alcohol withdrawal symptoms; [facility] protocol, IV fluids and supportive care --Substance abuse including cocaine abuse; Counseling strongly advised to quit recreational drugs tobacco and alcohol use --DVT prophylaxis Lovenox Monitor closely and adjust the management as needed Plan of care reviewed with the patient and his nurse History Interval history: Patient seen and examined at the bedside this morning Patient's chart and medications reviewed Patient is more alert and awake very minimal tremulousness Responding appropriately In mild distress Vital signs noted Hospitalist Physical - Constitutional Vitals: Temp Pulse Resp BP Pulse Ox 98.4 F 94 H 20 108/60 96 11/15/19 09:49 11/15/19 09:49 11/15/19 09:49 11/15/19 09:49 11/15/19 09:49 General appearance: Present: mild distress, cachectic, other (Tremulousness) - EENT Eyes: Present: PERRL, EOM intact - Neck Neck: Present: supple, normal ROM - Respiratory Respiratory effort: normal Respiratory: bilateral: diminished, negative: rales, rhonchi, wheezing - Cardiovascular Rhythm: regular - Extremities Extremities: no ischemia, No edema - Abdominal General gastrointestinal: soft, non-tender, non-distended, normal bowel sounds - Integumentary Integumentary: Present: clear, warm - Psychiatric Psychiatric: appropriate mood/affect, other (Mild tremulousness) - Neurologic Neurologic: moves all extremities Results - Labs CBC & Chem 7: 11/12/19 22:44 11/14/19 04:32 Labs: Laboratory Last Values WBC 6.2 K/mm3 (4.5-11.0) 11/12/19 22:44 RBC 4.23 M/mm3 (3.65-5.03) 11/12/19 22:44 Hgb 14.8 gm/dl (11.8-15.2) 11/12/19 22:44 Hct 42.5 % (35.5-45.6) 11/12/19 22:44 MCV 100 fl (84-94) H 11/12/19 22:44 MCH 35 pg (28-32) H 11/12/19 22:44 MCHC 35 % (32-34) H 11/12/19 22:44 RDW 15.0 % (13.2-15.2) 11/12/19 22:44 Plt Count 695 K/mm3 (140-440) H 11/12/19 22:44 Lymph % (Auto) 27.2 % (13.4-35.0) 11/12/19 22:44 [place] % (Auto) 8.5 % (0.0-7.3) H 11/12/19 22:44 Eos % (Auto) 1.0 % (0.0-4.3) 11/12/19 22:44 Baso % (Auto) 0.6 % (0.0-1.8) 11/12/19 22:44 Lymph # 1.7 K/mm3 (1.2-5.4) 11/12/19 22:44 [place] # 0.5 K/mm3 (0.0-0.8) 11/12/19 22:44 Eos # 0.1 K/mm3 (0.0-0.4) 11/12/19 22:44 Baso # 0.0 K/mm3 (0.0-0.1) 11/12/19 22:44 Seg Neutrophils % 62.7 % (40.0-70.0) 11/12/19 22:44 Seg Neutrophils # 3.9 K/mm3 (1.8-7.7) 11/12/19 22:44 Sodium 138 mmol/L (137-145) 11/14/19 04:32 Potassium 4.1 mmol/L (3.6-5.0) 11/14/19 04:32 Chloride 99.7 mmol/L (98-107) 11/14/19 04:32 Carbon Dioxide 26 mmol/L (22-30) 11/14/19 04:32 Anion Gap 16 mmol/L 11/14/19 04:32 BUN 10 mg/dL (9-20) 11/14/19 04:32 Creatinine 0.6 mg/dL (0.8-1.5) L 11/14/19 04:32 Estimated GFR > 60 ml/min 11/14/19 04:32 BUN/Creatinine Ratio 17 % 11/14/19 04:32 Glucose 91 mg/dL (75-100) 11/14/19 04:32 Calcium 8.3 mg/dL (8.4-10.2) L 11/14/19 04:32 Phosphorus 3.30 mg/dL (2.5-4.5) 11/14/19 04:32 Magnesium 2.10 mg/dL (1.7-2.3) 11/14/19 04:32 Total Bilirubin 0.30 mg/dL (0.1-1.2) 11/14/19 04:32 AST 21 units/L (5-40) 11/14/19 04:32 ALT 14 units/L (7-56) 11/14/19 04:32 Alkaline Phosphatase 95 units/L (35-129) 11/14/19 04:32 Ammonia 31.0 umol/L (25-60) 11/13/19 07:53 Total Creatine Kinase 169 units/L (55-170) 11/12/19 22:44 Total Protein 6.0 g/dL (6.3-8.2) L 11/14/19 04:32 Albumin 3.1 g/dL (3.9-5) L 11/14/19 04:32 Albumin/Globulin Ratio 1.1 % 11/14/19 04:32 Urine Color Yellow (Yellow) 11/12/19 22:08 Urine Turbidity Clear (Clear) 11/12/19 22:08 Urine pH 6.0 (5.0-7.0) 11/12/19 22:08 Ur Specific [place] 1.006 (1.003-1.030) 11/12/19 22:08 Urine Protein <15 mg/dl mg/dL (Negative) 11/12/19 22:08 Urine Glucose (UA) Neg mg/dL (Negative) 11/12/19 22:08 Urine Ketones Neg mg/dL (Negative) 11/12/19 22:08 Urine Blood Sm (Negative) 11/12/19 22:08 Urine Nitrite Neg (Negative) 11/12/19 22:08 Urine Bilirubin Neg (Negative) 11/12/19 22:08 Urine Urobilinogen < 2.0 mg/dL (<2.0) 11/12/19 22:08 Ur Leukocyte Esterase Neg (Negative) 11/12/19 22:08 Urine WBC (Auto) 1.0 /HPF (0.0-6.0) 11/12/19 22:08 Urine RBC (Auto) 2.0 /HPF (0.0-6.0) 11/12/19 22:08 U Epithel Cells (Auto) < 1.0 /HPF (0-13.0) 11/12/19 22:08 Urine Mucus Few /HPF 11/12/19 22:08 Salicylates < 0.3 mg/dL (2.8-20.0) L 11/12/19 22:44 Urine Opiates Screen Presumptive negative 11/12/19 22:08 Urine Methadone Screen Presumptive negative 11/12/19 22:08 Acetaminophen < 5.0 ug/mL (10.0-30.0) L 11/12/19 22:44 Ur Barbiturates Screen Presumptive negative 11/12/19 22:08 Ur Phencyclidine Scrn Presumptive negative 11/12/19 22:08 Ur Amphetamines Screen Presumptive negative 11/12/19 22:08 U Benzodiazepines Scrn Presumptive negative 11/12/19 22:08 [place] 0.1 mmol/L (0.0-1.2) 11/13/19 07:53 Urine Cocaine Screen Presumptive positive 11/12/19 22:08 U Marijuana (THC) Screen Presumptive negative 11/12/19 22:08 Drugs of Abuse Note Disclamer 11/12/19 22:08 Plasma/Serum Alcohol 0.02 % (0-0.07) 11/13/19 05:29 Jean/IV: Voiding Method Urinal IV Catheter Type [Left INT / Saline Lock Antecubital] IV Catheter Type [Right Hand] INT / Saline Lock IV Catheter Type [Right INT / Saline Lock Antecubital] Active Medications - Current Medications Current Medications: Generic Name Dose Route Start Last Admin Trade Name Freq PRN Reason Stop Dose Admin Acetaminophen 650 mg 11/13/19 18:26 11/13/19 18:35 Tylenol PO 650 mg Q4H PRN Administration Pain, Mild (1-3) Divalproex Sodium 250 mg 11/15/19 10:00 11/15/19 10:[address] PO 250 mg BID HUNTER Administration Famotidine 10 mg 11/13/19 22:00 11/15/19 10:40 Pepcid PO 10 mg BID HUNTER Administration Fluoxetine HCl 20 mg 11/15/19 10:00 11/15/19 10:40 Prozac PO 20 mg QDAY HUNTER Administration Folic Acid 1 mg 11/14/19 10:00 11/15/19 10:40 Folvite PO 1 mg QDAY HUNTER Administration Gabapentin 300 mg 11/14/19 10:00 11/15/19 10:40 Gabapentin PO 300 mg DAILY HUNTER Administration Ketorolac Tromethamine 15 mg 11/14/19 00:00 11/15/19 06:34 Toradol IV 11/19/19 00:00 15 mg Q6HR HUNTER Administration Lorazepam 2 mg 11/12/19 22:35 11/14/19 21:03 Ativan IV 2 mg Q1HR PRN Administration CIWA-Ar 8-15 Lorazepam 4 mg 11/12/19 22:35 11/14/19 17:24 Ativan IV 4 mg Q15MIN PRN Administration CIWA-Ar >25 Lorazepam 4 mg 11/13/19 01:13 11/15/19 04:31 Ativan IV 4 mg Q1H PRN Administration CIWA-Ar 16-25 Melatonin 5 mg 11/14/19 21:00 11/15/19 00:36 Melatonin PO 5 mg QHS PRN Administration Sleep Multivitamins 1 each 11/14/19 10:00 11/15/19 10:40 Theragran Tab PO 1 each DAILY HUNTER Administration Ondansetron HCl 4 mg 11/14/19 10:49 11/14/19 12:24 Zofran IV 4 mg Q4H PRN Administration Nausea And Vomiting Prazosin HCl 1 mg 11/13/19 22:00 11/14/19 21:03 Prazosin PO 1 mg HS HUNTER Administration Quetiapine Fumarate 25 mg 11/14/19 10:00 11/15/19 10:40 Seroquel PO 25 mg BID HUNTER Administration Thiamine HCl 100 mg 11/14/19 10:00 11/15/19 10:40 Vitamin B-1 PO 100 mg QDAY HUNTER Administration Trazodone HCl 50 mg 11/14/19 22:00 11/14/19 21:03 Desyrel PO 50 mg QHS HUNTER Administration
[2019-11-15] MEDS: PRAZOSIN 1 MG CAP PO SCH (21:42)
[2019-11-15] MEDS: traZODone 50 MG TAB PO SCH (21:42)
[2019-11-16] MEDS: KETOROLAC 30 MG/1 ML INJ IV SCH ×3 (06:11→11:48)
[2019-11-16] MEDS: THIAMINE 100 MG TAB PO SCH (09:23)
[2019-11-16] MEDS: QUEtiapine 25 MG TAB PO SCH (09:23)
[2019-11-16] MEDS: FOLIC ACID 1 MG TAB PO SCH (09:23)
[2019-11-16] MEDS: FLUoxetine 20 MG CAP PO SCH (09:23)
[2019-11-16] MEDS: DIVALPROEX DR 250 MG TAB PO SCH (09:23)
[2019-11-16] MEDS: GABAPENTIN 300 MG CAP PO SCH (09:23)
[2019-11-16] MEDS: MULTIVITAMINS ,THERAPEUTIC TAB PO SCH (09:23)
[2019-11-16] MEDS: FAMOTIDINE 10 MG TAB PO SCH (09:23)
[2019-11-16] MEDS: LORazepam 2 MG/ML VIAL IV PRN (09:28)
--- NOTE | 2019-11-16 10:29 | Progress Note ---
Subjective - Reason for Consult Consult date: 11/16/19 Reason for consult: alcohol withdrawal, SI - Chief Complaint Chief complaint: The patient's medical record was reviewed and the patient's progress was discussed with the nursing staff. During my interview with the patient this morning, he is lying in bed asleep. Easily arouses. He is oriented x 3. The patient first states, "I don't know," when asked how he was feeling. He then says, "I'm hurting. My sciatic nerve is hurting." He then says, "and I'm still getting the shakes." The patient denies SI at present, but states, "I thought about it yesterday." He says, "I'm hurting. Can you give me something." He says, "my shakes and pain are my problems right now." When advising the patient he had to leave the alcohol and drugs a lone, the patient states, "I need to leave a lot of stuff a lone." He denies hallucinations of any kind. REVIEW OF SYSTEMS Constitutional: Negative for weight loss ENT: Negative for stridor Respiratory: Negative for cough or hemoptysis All other systems reviewed and are negative MENTAL STATUS EXAMINATION General Appearance: Dressed appropriately Behavior: calm cooperative Mood: "hurting" Affect: Congruent with stated mood Speech: Normal tone and pace Thought Process: Goal directed Thought Content: Suicidal Ideation: Denies Homicidal Ideation: Denies Hallucinations: Denies Delusions: None elicited Insight and Judgment: Limited Memory/Cognition: Limited Assessment Drug Induced Mood Disorder Bipolar Disorder, Current Episode Depressed, w/Psychotic Features MEDICATIONS: Scripts (transmitted electronically) Depakote DR 250mg po BID Prozac 20mg po daily Seroquel 25mg po BID Trazodone 50mg po qhs Risks, benefits and alternatives of medications discussed with the patient, questions answered and consent obtained from patient. PSYCHOTHERAPY: Supportive psychotherapy provided MEDICAL: Per primary team DELIRIUM PRECAUTIONS: Please re-orient patient frequently, keep lights on during the day, and minimize benzodiazepines and opiates as these medications could worsen patient's confusion. DATA CONSULTANT: Per Medical Team DISPOSITION: The patient does not meet the requirement for acute inpatient psychiatric treatment. He may discharge home once medically cleared. The patient understands that if suicidal thoughts or feelings of endangerment are to arise, he is to seek immediate assistance including but not limited to the crisis hotline, 911 and/or ER. The solid propellant processor is to further go over safety plan with the patient and give the patient resources for cognitive behavior therapy and drug rehabilitation programs The patient is to abstain from all illicit drug use and alcohol use. He is to follow up with outpatient psychiatry or primary in 7 to 14 days upon discharge. Will sign off. Please call with any questions or comments. Thank you for this consult. Mental Status Exam - Vital signs Last Vital Signs Temp 97.7 F 11/16/19 08:16 Pulse 94 H 11/16/19 08:16 Resp 20 11/16/19 08:16 BP 127/90 11/16/19 08:16 Pulse Ox 98 11/16/19 08:16
[2019-11-16 11:27] VITALS: BP 102/63
--- NOTE | 2019-11-16 12:41 | Discharge Summary ---
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 care physician: SHEETER OPERATOR Hospitalization Reason for admission: Alcohol intoxication/alcohol tremors/suicidal ideation Condition: Stable Pertinent studies: CT head without contrast; no acute abnormality noted Hospital course: 43-year-old male patient well-known to our service multiple admissions in the past with history of chronic alcohol use episodes of alcohol withdrawals Presented to the emergency room with history suicidal ideation, had alcohol 6 hours ago, with tremulousness and generalized weakness Patient was evaluated in the ED placed on 1013 status, consulted psych Patient complains of nausea no vomiting and tremors. Patient symptoms significantly improved, patient does not feel depressed any longer Denies any suicidal thoughts or ideation, psych rescinded 1013 and cleared for discharge Patient is hemodynamically and clinically stable at discharge Discharge diagnosis; --Suicidal ideation; patient feels better today Alert awake oriented responding appropriately Placed on 1013 status, psych evaluating the patient Medications optimized, today patient feels better Patient does not have suicidal thoughts or ideation anymore Alert and awake oriented x3 --Alcohol intoxication; patient counseled advised to quit alcohol intake Verbalized understanding, also advised to seek alcohol rehabilitation --Chronic alcohol use; counseled to quit alcohol intake --Alcohol withdrawal symptoms; Received treatment per [facility] protocol, Symptoms resolved --Substance abuse including cocaine abuse; Counseling strongly advised to quit recreational drugs tobacco and alcohol use --DVT prophylaxis Lovenox Patient cleared by psych for discharge 1013 status rescinded Patient is stable at discharge Case management assisted with discharge planning Disposition: DC-01 TO HOME OR SELFCARE Time spent for discharge: 32 min Core Measure Documentation - Palliative Care Palliative Care/ Comfort Measures: Not Applicable - Core Measures Any of the following diagnoses?: none Exam - Constitutional Vitals: Temp Pulse Resp BP Pulse Ox 97.5 F L 80 18 102/63 99 11/16/19 11:15 11/16/19 11:15 11/16/19 11:15 11/16/19 11:26 11/16/19 11:15 General appearance: Present: no acute distress, other (No tremulousness or agitation) - EENT Eyes: Present: PERRL, EOM intact - Neck Neck: Present: supple, normal ROM - Respiratory Respiratory effort: normal Respiratory: bilateral: diminished, negative: rales, rhonchi, wheezing - Cardiovascular Rhythm: regular Heart Sounds: Present: S1 & S2 - Extremities Extremities: no ischemia, No edema - Abdominal General gastrointestinal: Present: soft, non-tender, non-distended, normal bowel sounds - Integumentary Integumentary: Present: clear, warm - Musculoskeletal Musculoskeletal: strength equal bilaterally - Psychiatric Psychiatric: appropriate mood/affect, cooperative - Neurologic Neurologic: moves all extremities Plan Activity: advance as tolerated, no driving until cleared by PCP, fall precautions Diet: regular Additional Instructions: Advised to quit alcohol intake. Advised alcohol rehabilitation Follow up with: PRIMARY CARE, [Primary Care Provider] - 3-5 Days Prescriptions: Divalproex [Doreen PULIDO] 250 mg PO BID #60 tablet traZODone [Desyrel] 50 mg PO QHS #30 tab FLUoxetine HCL [Prozac] 20 mg PO DAILY #30 capsule QUEtiapine [SEROquel] 25 mg PO BID #60 tablet
== END 2019-11-16 15:30 | disposition home or self-care (01) | DRG 897 ==
LOC: ED 21:08 → 4A 11-13 13:25
PROVIDERS: ADMIT Internal Medicine; ATTEND Internal Medicine
DX: F10.929 Alcohol use, unspecified with intoxication, unspecified (principal); F31.5 Bipolar disorder, current episode depressed, severe, with psychotic features; R45.851 Suicidal ideations; F19.94 Other psychoactive substance use, unspecified with psychoactive substance-induced mood disorder; F14.10 Cocaine abuse, uncomplicated; F17.200 Nicotine dependence, unspecified, uncomplicated; F12.90 Cannabis use, unspecified, uncomplicated; Z59.0 Homelessness; Z88.0 Allergy status to penicillin; Z88.2 Allergy status to sulfonamides; Z79.899 Other long term (current) drug therapy
CPT/HCPCS: 36415; 70450; 80048; 80053; 80178; 80307; 80320; 81001; 82140; 82550; 83735; 84100; 85025; 99406; G0378; G0480; J1885; J2060; J2405; J3411; J7030

== ENCOUNTER 2019-11-19 19:27 | Inpatient (IN) | payer OTHER ==
[2019-11-19 20:14] LABS: Bilirubin,Urine NEG (Negative); Blood,Urine NEG (Negative); Color,Urine Yellow (Yellow); Mucus,Urine FEW /HPF; Protein,Urine <15 mg/dL mg/dL (Negative); Urobilinogen,Urine < 2.0 mg/dL (<2.0); WBC,Urine < 1.0 /HPF (0.0-6.0)
[2019-11-19 20:22] LABS: Amphetamine Screen,Urine PRESUMPTIVE NEGATIVE; Benzodiazepines Screen,Urine PRESUMPTIVE NEGATIVE; Cannabinoid Screen,Urine PRESUMPTIVE NEGATIVE; Methadone Screen,Urine PRESUMPTIVE NEGATIVE; Opiate Screen,Urine PRESUMPTIVE NEGATIVE
[2019-11-19 20:35] LABS: Basophils # (Auto) 0.2 K/mm3 (0.0-0.1); Basophils % (Auto) 2.9 % (0.0-1.8); Eosinophils # (Auto) 0.1 K/mm3 (0.0-0.4); Eosinophils % (Auto) 1.3 % (0.0-4.3); Hematocrit 39.2 % (35.5-45.6); Hemoglobin 13.4 gm/dl (11.8-15.2); Lymphocytes # (Auto) 2.4 K/mm3 (1.2-5.4); Lymphocytes % (Auto) 39.2 % (13.4-35.0); Mean Corpuscular HGB Conc 34 % (32-34); Mean Corpuscular Volume 103 fl (84-94); Monocytes # (Auto) 0.4 K/mm3 (0.0-0.8); Monocytes % (Auto) 7.3 % (0.0-7.3); Platelet Count 499 K/mm3 (140-440); Red Blood Count 3.83 M/mm3 (3.65-5.03); Red Cell Distribution Width 15.2 % (13.2-15.2)
[2019-11-19 20:39] LABS: Cocaine Screen,Urine PRESUMPTIVE POSITIVE
[2019-11-19 20:42] LABS: BUN/Creatinine Ratio 12; Blood Urea Nitrogen 13 mg/dL (9-20); Calcium 8.8 mg/dL (8.4-10.2); Hemolysis Index 165
[2019-11-19] MEDS ORDERED: chlordiazePOXIDE 25 MG CAP PO PRN (21:03)
[2019-11-19] MEDS ORDERED: LORazepam 2 MG/ML VIAL IV PRN (21:03)
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
[2019-11-19] MEDS: LORazepam 2 MG TAB PO PRN (21:42)
[2019-11-19] MEDS ORDERED: ACETAMINOPHEN 325 MG TAB PO PRN (22:22)
[2019-11-19] MEDS: FAMOTIDINE 10 MG TAB PO SCH (22:56)
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
[2019-11-20] MEDS: LORazepam 2 MG TAB PO PRN ×3 (09:07→22:04)
[2019-11-20] MEDS ORDERED: MULTIVITAMIN PO SCH (10:00)
[2019-11-20] MEDS: FOLIC ACID 1 MG TAB PO SCH (11:06)
[2019-11-20] MEDS: THIAMINE 100 MG TAB PO SCH (11:07)
[2019-11-20] MEDS: MULTIVITAMINS,THER W-MINERALS TAB PO SCH (18:15)
[2019-11-20] MEDS: FAMOTIDINE 10 MG TAB PO SCH ×2 (18:15→22:00)
[2019-11-21] MEDS: LORazepam 2 MG TAB PO PRN ×4 (08:57→23:50)
[2019-11-21 09:35] LABS: BUN/Creatinine Ratio 13; Blood Urea Nitrogen 9 mg/dL (9-20); Calcium 9.5 mg/dL (8.4-10.2); Hemolysis Index 5
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
[2019-11-21 09:49] LABS: Hematocrit 40.6 % (35.5-45.6); Hemoglobin 13.9 gm/dl (11.8-15.2); Mean Corpuscular HGB Conc 34 % (32-34); Mean Corpuscular Volume 100 fl (84-94); Platelet Count 381 K/mm3 (140-440); Red Blood Count 4.06 M/mm3 (3.65-5.03); Red Cell Distribution Width 15.1 % (13.2-15.2)
[2019-11-21] MEDS ORDERED: QUEtiapine 25 MG TAB PO SCH (10:00)
[2019-11-21] MEDS ORDERED: DIVALPROEX ER 250 MG TAB PO SCH (10:00)
[2019-11-21] MEDS ORDERED: SIMETHICONE PO PRN (10:42)
[2019-11-21] MEDS ORDERED: CALCIUM CARBONATE PO PRN (10:42)
[2019-11-21] MEDS ORDERED: ALBUTEROL 2.5 MG/3 ML NEBU IH PRN (10:52)
[2019-11-21] MEDS ORDERED: ONDANSETRON 4 MG/2 ML INJ IV PRN (10:52)
[2019-11-21] MEDS ORDERED: ACETAMINOPHEN 325 MG TAB PO PRN (10:52)
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
[2019-11-21] MEDS ORDERED: 1: FOLIC ACID 1 MG, MULTIPLE VITAMIN INJ, ADULT 10 ML, THIAMINE 100 MG in SODIUM CHLORID IV SCH (11:00)
[2019-11-21 11:03] LABS: Large Platelets Few; Platelet Estimate Consistent w Auto; RBC Morphology Normal; Total Cells Counted 100
[2019-11-21] MEDS: DIVALPROEX DR 250 MG TAB PO SCH ×2 (12:00→21:35)
[2019-11-21] MEDS: OMEGA-3 FATTY ACIDS/FISH OIL 1 GRAM CAP PO SCH ×2 (12:00→21:30)
[2019-11-21] MEDS ORDERED: MULTIVITAMINS ,THERAPEUTIC TAB PO ONE (12:23)
[2019-11-21] MEDS ORDERED: QUEtiapine 25 MG TAB ONE (12:24)
[2019-11-21] MEDS ORDERED: LORazepam 2 MG TAB ONE (12:37)
[2019-11-21] MEDS ORDERED: SIMETHICONE 80 MG CHEW TAB PO PRN (12:38)
[2019-11-21] MEDS: FAMOTIDINE 10 MG TAB PO SCH ×2 (12:40→21:30)
[2019-11-21] MEDS: MULTIVITAMINS,THER W-MINERALS TAB PO SCH (12:40)
[2019-11-21] MEDS: FOLIC ACID 1 MG, THIAMINE 100 MG, MULTIPLE VITAMIN INJ, ADULT 10 ML in SODIUM CHLORIDE ... IV SCH (12:41)
[2019-11-21] MEDS: QUEtiapine 25 MG TAB PO SCH ×2 (12:41→21:31)
[2019-11-21] MEDS: FOLIC ACID 1 MG TAB PO SCH (15:02)
[2019-11-21] MEDS: THIAMINE 100 MG TAB PO SCH (15:02)
[2019-11-21] MEDS: IBUPROFEN 400 MG TAB PO PRN (18:46)
[2019-11-21] MEDS: SODIUM CHLORIDE 0.9% 1000 ML 1,000 ML IV SCH (20:00)
[2019-11-21] MEDS: traZODone 50 MG TAB PO SCH (21:30)
[2019-11-21] MEDS: PRAZOSIN 1 MG CAP PO SCH (21:30)
[2019-11-21] MEDS: SENNOSIDES 8.6 MG TAB PO SCH (21:32)
[2019-11-21] MEDS ORDERED: MELATONIN 5 MG TAB PO PRN (22:00)
[2019-11-22 05:07] LABS: Basophils # (Auto) 0.1 K/mm3 (0.0-0.1); Basophils % (Auto) 1.3 % (0.0-1.8); Eosinophils # (Auto) 0.2 K/mm3 (0.0-0.4); Eosinophils % (Auto) 2.3 % (0.0-4.3); Hematocrit 38.6 % (35.5-45.6); Hemoglobin 13.3 gm/dl (11.8-15.2); Lymphocytes # (Auto) 2.4 K/mm3 (1.2-5.4); Lymphocytes % (Auto) 33.5 % (13.4-35.0); Mean Corpuscular HGB Conc 34 % (32-34); Mean Corpuscular Volume 103 fl (84-94); Monocytes # (Auto) 1.1 K/mm3 (0.0-0.8); Monocytes % (Auto) 15.5 % (0.0-7.3); Platelet Count 353 K/mm3 (140-440); Red Blood Count 3.76 M/mm3 (3.65-5.03); Red Cell Distribution Width 14.8 % (13.2-15.2)
[2019-11-22 05:29] LABS: Alanine Aminotransferase 14 units/L (7-56); Albumin 3.7 g/dL (3.9-5); BUN/Creatinine Ratio 16; Blood Urea Nitrogen 13 mg/dL (9-20); Calcium 8.9 mg/dL (8.4-10.2); Hemolysis Index 6
[2019-11-22] MEDS: FAMOTIDINE 10 MG TAB PO SCH ×2 (09:40→21:46)
[2019-11-22] MEDS: SENNOSIDES 8.6 MG TAB PO SCH ×2 (09:40→21:46)
[2019-11-22] MEDS: QUEtiapine 25 MG TAB PO SCH ×2 (09:40→21:46)
[2019-11-22] MEDS: OMEGA-3 FATTY ACIDS/FISH OIL 1 GRAM CAP PO SCH ×2 (09:40→21:45)
[2019-11-22] MEDS: DIVALPROEX DR 250 MG TAB PO SCH ×2 (09:41→21:52)
[2019-11-22] MEDS: FOLIC ACID 1 MG, THIAMINE 100 MG, MULTIPLE VITAMIN INJ, ADULT 10 ML in SODIUM CHLORIDE ... IV SCH (09:43)
[2019-11-22] MEDS ORDERED: FOLIC ACID 1 MG TAB PO SCH (10:00)
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
[2019-11-22] MEDS: LORazepam 2 MG TAB PO PRN ×2 (12:30→21:46)
[2019-11-22] MEDS: IBUPROFEN 400 MG TAB PO PRN ×2 (14:22→21:46)
[2019-11-22] MEDS: PRAZOSIN 1 MG CAP PO SCH (21:46)
[2019-11-22] MEDS: traZODone 50 MG TAB PO SCH (21:55)
[2019-11-22] MEDS: SODIUM CHLORIDE 0.9% 1000 ML 1,000 ML IV SCH (21:59)
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
[2019-11-23] MEDS ORDERED: chlordiazePOXIDE 25 MG CAP PO PRN (08:00)
[2019-11-23] MEDS: SODIUM CHLORIDE 0.9% 1000 ML 1,000 ML IV SCH (08:46)
[2019-11-23] MEDS ORDERED: POTASSIUM CHLORIDE ER 20 MEQ TAB PO ONE (09:00)
[2019-11-23] MEDS: FOLIC ACID 1 MG, THIAMINE 100 MG, MULTIPLE VITAMIN INJ, ADULT 10 ML in SODIUM CHLORIDE ... IV SCH (09:06)
[2019-11-23] MEDS: FAMOTIDINE 10 MG TAB PO SCH ×2 (09:07→21:21)
[2019-11-23] MEDS: DIVALPROEX DR 250 MG TAB PO SCH (09:07)
[2019-11-23] MEDS: GABAPENTIN 300 MG CAP PO SCH ×2 (09:07→21:22)
[2019-11-23] MEDS: SENNOSIDES 8.6 MG TAB PO SCH ×2 (09:07→21:22)
[2019-11-23] MEDS: QUEtiapine 25 MG TAB PO SCH ×3 (09:07→21:22)
[2019-11-23] MEDS: OMEGA-3 FATTY ACIDS/FISH OIL 1 GRAM CAP PO SCH ×2 (09:07→21:21)
[2019-11-23] MEDS: LORazepam 2 MG TAB PO PRN ×3 (10:17→21:29)
--- NOTE | 2019-11-23 11:38 | Progress Note ---
Subjective - Reason for Consult Consult date: 11/23/19 Reason for consult: MHE Requesting physician: MOOSE BOGGS - Chief Complaint Chief complaint: Per Floor Nurse Note: RECEIVED REPORT FROM THE OUTGOING NURSE. MET THE PT LYING IN BED AWAKE AND ALERT. ORIENTED TIMES THREE. NO C/O PAINS AT THE MOMENT. IVF CONTINUE ORDERED. PT IS 1013 WITH SITTER AT THE BEDSIDE. CIWA PROTOCOL. CONTINUE TO [id number] Psych Progress Patient seen at bedside today, admitted to Medical floor for medical management. Endorses persistent SI, HI and says he feels hopeless and tired of everything. Meds compliant MENTAL STATUS EXAMINATION General Appearance and Behavior: dishelved , poorhygiene, wearing appropriate clothes, poor eye contact, cooperative with questioning and polite but irritable Cooperation: Participating/engaged Psychomotor Behavior: unremarkable and within normal limits Mood:Anxious, Depressed Affect and affective range: Congruent with mood Thought Process: Fluent/Logical Thought Content: Within reality, Hopelessness, Helplessness Speech: Normal volume, Regular rate and rhythm Intellectual Functioning: Average Suicidal Ideation: Suicidal Homicidal Ideation: Denies Impulse Control: impaired Insight and Judgment: Poor insight and judgment Memory: Normal Attention: Normal Orientation: Alert, oriented RECOMMENDATIONS MEDICATIONS: Pls stop Deparkote due to new onset rash in lower extremity. Concern for medication induced rash Risks, benefits and alternatives of medications discussed with the patient, questions answered and consent obtained from patient. PSYCHOTHERAPY: Supportive psychotherapy provided MEDICAL: Per primary team DELIRIUM PRECAUTIONS: Please re-orient patient frequently, keep lights on during the day, and minimize benzodiazepines and opiates as these medications could worsen patient's confusion. 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 Please contact with any questions and/or concerns. Mental Status Exam - Vital signs Last Vital Signs Temp 98.4 F 11/23/19 08:30 Pulse 81 11/23/19 08:51 Resp 17 11/23/19 08:51 BP 113/69 11/23/19 08:30 Pulse Ox 98 11/23/19 08:51
[2019-11-23] MEDS: IBUPROFEN 400 MG TAB PO PRN (16:00)
[2019-11-23] MEDS: PRAZOSIN 1 MG CAP PO SCH (21:21)
[2019-11-23] MEDS: traZODone 50 MG TAB PO SCH (21:29)
[2019-11-24] MEDS: SODIUM CHLORIDE 0.9% 1000 ML 1,000 ML IV SCH ×2 (02:30→15:31)
[2019-11-24] MEDS: OMEGA-3 FATTY ACIDS/FISH OIL 1 GRAM CAP PO SCH ×2 (09:45→21:00)
[2019-11-24] MEDS: THIAMINE 100 MG TAB PO SCH (09:45)
[2019-11-24] MEDS: FOLIC ACID 1 MG TAB PO SCH (09:45)
[2019-11-24] MEDS: SENNOSIDES 8.6 MG TAB PO SCH ×2 (09:45→21:01)
[2019-11-24] MEDS: QUEtiapine 25 MG TAB PO SCH ×2 (09:45→21:01)
[2019-11-24] MEDS: FAMOTIDINE 10 MG TAB PO SCH ×2 (09:45→21:01)
[2019-11-24] MEDS: MULTIVITAMINS ,THERAPEUTIC TAB PO SCH (09:45)
[2019-11-24] MEDS: GABAPENTIN 300 MG CAP PO SCH ×2 (09:45→21:00)
--- NOTE | 2019-11-24 11:52 | Progress Note ---
Subjective - Reason for Consult Consult date: 11/24/19 Reason for consult: MHE Requesting physician: MOOSE BOGGS - Chief Complaint Chief complaint: Per Floor Nurse Note: Handoff report received from Shantell OCHOA. Patient on bed, resting. Sitter in room. INT in place, NS at 125cc/hr flowing well. Siderails up x3. Bed at lowest position. No seizures overnight. Patient monitored. Psych Progress I interviewed patient at bedside this AM, improved mood based on affect, pt reports sleeping good last night compared to previous, appetite has been good, endorses intermittent SI, and but denies HI. Patient says he feels hopeless, not having a place, a job and thats why he keeps doing drugs and when asked if he would like to get his life back together and enroll in programs that could help, patient said no, cos he just want to . Pt then requested for specific sites to be placed for SI management. I informed patient he would discharged to accepting facilities, preferences not available at this time, him not willing to enroll in programs but solely seeking acute inpatient hospitalization solely due to his homelessness is not an encouraging behavior. MENTAL STATUS EXAMINATION General Appearance and Behavior: dishelved , poor hygiene, wearing appropriate clothes, poor eye contact, cooperative with questioning and polite but irritable Cooperation: Participating/engaged Psychomotor Behavior: unremarkable and within normal limits Mood:Anxious, Depressed Affect and affective range: Congruent with mood Thought Process: Fluent/Logical Thought Content: Within reality, Hopelessness, Helplessness Speech: Normal volume, Regular rate and rhythm Intellectual Functioning: Average Suicidal Ideation: Suicidal Homicidal Ideation: Denies Impulse Control: unimpaired Insight and Judgment: Poor insight and judgment Memory: Normal Attention: Normal Orientation: Alert, oriented RECOMMENDATIONS Concern for malingering behavior, due to patient asking specifically for places to go, he does not wish to enroll in programs that would help him get his life back together, and has perisstently been going to using drugs even after detox programs. Will observe today and re-evaluate tomorrow. MEDICATIONS: Pls stop Deparkote due to new onset rash in lower extremity. Concern for medication induced rash Risks, benefits and alternatives of medications discussed with the patient, questions answered and consent obtained from patient. PSYCHOTHERAPY: Supportive psychotherapy provided MEDICAL: Per primary team DELIRIUM PRECAUTIONS: Please re-orient patient frequently, keep lights on during the day, and minimize benzodiazepines and opiates as these medications could worsen patient's confusion. 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 Please contact with any questions and/or concerns. Mental Status Exam - Vital signs Last Vital Signs Temp 98.9 F 11/24/19 08:58 Pulse 98 H 11/24/19 08:58 Resp 18 11/24/19 08:58 BP 90/50 11/24/19 08:58 Pulse Ox 99 11/24/19 08:58
[2019-11-24] MEDS: LORazepam 2 MG TAB PO PRN (13:14)
--- NOTE | 2019-11-24 14:42 | Progress Note ---
Assessment and Plan Assessment and plan: --Suicidal ideation; Suicidal watch, management per psych Recommends inpatient psych management --Alcohol intoxication with withdrawal; Thiamine folic acid, CIWA protocol --Delirium tremens; Continue CIWA protocol --Major depression disorder; Management per psych --Bipolar disorder; Management per psych, continue psych meds --Recurrent substance abuse cocaine and marijuana; Counseling done strongly advised to quit recreational drug use Patient verbalized understanding --Noncompliance with medications and treatment; Strongly advised to comply with medications and diet --Homelessness; Social issues, case management assisting With discharge planning --Hypomagnesemia; Replenish per protocol and monitor levels History Interval history: Patient seen and examined this morning at bedside Patient's chart and medications reviewed Patient was admitted with suicidal ideation and thoughts and alcohol intoxication 1013 status, psych evaluated the patient recommend inpatient psych management Patient feels slightly better Says that he is homeless No new complaints Vital signs noted Hospitalist Physical - Constitutional Vitals: Temp Pulse Resp BP Pulse Ox 98.6 F 86 20 100/57 96 11/24/19 11:46 11/24/19 11:46 11/24/19 11:46 11/24/19 11:52 11/24/19 11:46 General appearance: Present: no acute distress, well-nourished, other (No tremu lousness or agitation) - EENT Eyes: Present: PERRL, EOM intact - Neck Neck: Present: supple, normal ROM - Respiratory Respiratory effort: normal Respiratory: bilateral: diminished, negative: rales, rhonchi, wheezing - Cardiovascular Rhythm: regular Heart Sounds: Present: S1 & S2 - Extremities Extremities: no ischemia, No edema - Abdominal General gastrointestinal: soft, non-tender, non-distended, normal bowel sounds - Integumentary Integumentary: Present: clear, warm - Psychiatric Psychiatric: appropriate mood/affect, cooperative - Neurologic Neurologic: CNII-XII intact, moves all extremities Results - Labs CBC & Chem 7: 11/22/19 04:49 11/22/19 04:49 Labs: Laboratory Last Values WBC 7.2 K/mm3 (4.5-11.0) 11/22/19 04:49 RBC 3.76 M/mm3 (3.65-5.03) 11/22/19 04:49 Hgb 13.3 gm/dl (11.8-15.2) 11/22/19 04:49 Hct 38.6 % (35.5-45.6) 11/22/19 04:49 MCV 103 fl (84-94) H 11/22/19 04:49 MCH 35 pg (28-32) H 11/22/19 04:49 MCHC 34 % (32-34) 11/22/19 04:49 RDW 14.8 % (13.2-15.2) 11/22/19 04:49 Plt Count 353 K/mm3 (140-440) 11/22/19 04:49 Lymph % (Auto) 33.5 % (13.4-35.0) 11/22/19 04:49 Russell % (Auto) 15.5 % (0.0-7.3) H 11/22/19 04:49 Eos % (Auto) 2.3 % (0.0-4.3) 11/22/19 04:49 Baso % (Auto) 1.3 % (0.0-1.8) 11/22/19 04:49 Lymph # 2.4 K/mm3 (1.2-5.4) 11/22/19 04:49 Russell # 1.1 K/mm3 (0.0-0.8) H 11/22/19 04:49 Eos # 0.2 K/mm3 (0.0-0.4) 11/22/19 04:49 Baso # 0.1 K/mm3 (0.0-0.1) 11/22/19 04:49 Add Manual Diff Complete 11/21/19 08:53 Total Counted 100 11/21/19 08:53 Seg Neutrophils % 47.4 % (40.0-70.0) 11/22/19 04:49 Seg Neuts % (Manual) 63.0 % (40.0-70.0) 11/21/19 08:53 Band Neutrophils % 0 % 11/21/19 08:53 Lymphocytes % (Manual) 20.0 % (13.4-35.0) 11/21/19 08:53 Reactive Lymphs % (Man) 1.0 % 11/21/19 08:53 Monocytes % (Manual) 14.0 % (0.0-7.3) H 11/21/19 08:53 Eosinophils % (Manual) 1.0 % (0.0-4.3) 11/21/19 08:53 Basophils % (Manual) 1.0 % (0.0-1.8) 11/21/19 08:53 Metamyelocytes % 0 % 11/21/19 08:53 Myelocytes % 0 % 11/21/19 08:53 Promyelocytes % 0 % 11/21/19 08:53 Blast Cells % 0 % 11/21/19 08:53 Nucleated RBC % Not Reportable 11/21/19 08:53 Seg Neutrophils # 3.4 K/mm3 (1.8-7.7) 11/22/19 04:49 Seg Neutrophils # Man 5.7 K/mm3 (1.8-7.7) 11/21/19 08:53 Band Neutrophils # 0.0 K/mm3 11/21/19 08:53 Lymphocytes # (Manual) 1.8 K/mm3 (1.2-5.4) 11/21/19 08:53 Abs React Lymphs (Man) 0.1 K/mm3 11/21/19 08:53 Monocytes # (Manual) 1.3 K/mm3 (0.0-0.8) H 11/21/19 08:53 Eosinophils # (Manual) 0.1 K/mm3 (0.0-0.4) 11/21/19 08:53 Basophils # (Manual) 0.1 K/mm3 (0.0-0.1) 11/21/19 08:53 Metamyelocytes # 0.0 K/mm3 11/21/19 08:53 Myelocytes # 0.0 K/mm3 11/21/19 08:53 Promyelocytes # 0.0 K/mm3 11/21/19 08:53 Blast Cells # 0.0 K/mm3 11/21/19 08:53 WBC Morphology Not Reportable 11/21/19 08:53 WBC Morphology TNR 11/21/19 08:53 Hypersegmented Neuts Not Reportable 11/21/19 08:53 Hyposegmented Neuts Not Reportable 11/21/19 08:53 Hypogranular Neuts Not Reportable 11/21/19 08:53 Smudge Cells Not Reportable 11/21/19 08:53 Toxic Granulation Not Reportable 11/21/19 08:53 Toxic Vacuolation Not Reportable 11/21/19 08:53 Dohle Bodies Not Reportable 11/21/19 08:53 Pelger-Huet Anomaly Not Reportable 11/21/19 08:53 Karla Rods Not Reportable 11/21/19 08:53 Platelet Estimate Consistent w auto 11/21/19 08:53 Clumped Platelets Not Reportable 11/21/19 08:53 Plt Clumps, EDTA Not Reportable 11/21/19 08:53 Large Platelets Few 11/21/19 08:53 Giant Platelets Not Reportable 11/21/19 08:53 Platelet Satelliting Not Reportable 11/21/19 08:53 Plt Morphology Comment Not Reportable 11/21/19 08:53 RBC Morphology Normal 11/21/19 08:53 Dimorphic RBCs Not Reportable 11/21/19 08:53 Polychromasia Not Reportable 11/21/19 08:53 Hypochromasia Not Reportable 11/21/19 08:53 Poikilocytosis Not Reportable 11/21/19 08:53 Anisocytosis Not Reportable 11/21/19 08:53 Microcytosis Not Reportable 11/21/19 08:53 Macrocytosis Not Reportable 11/21/19 08:53 Spherocytes Not Reportable 11/21/19 08:53 Pappenheimer Bodies Not Reportable 11/21/19 08:53 Sickle Cells Not Reportable 11/21/19 08:53 Target Cells Not Reportable 11/21/19 08:53 Tear Drop Cells Not Reportable 11/21/19 08:53 Ovalocytes Not Reportable 11/21/19 08:53 Helmet Cells Not Reportable 11/21/19 08:53 [employer] Bodies Not Reportable 11/21/19 08:53 Dry Prong Rings Not Reportable 11/21/19 08:53 [place] Cells Not Reportable 11/21/19 08:53 Bite Cells Not Reportable 11/21/19 08:53 Crenated Cell Not Reportable 11/21/19 08:53 Elliptocytes Not Reportable 11/21/19 08:53 Acanthocytes (Spur) Not Reportable 11/21/19 08:53 Rouleaux Not Reportable 11/21/19 08:53 Hemoglobin C Crystals Not Reportable 11/21/19 08:53 Schistocytes Not Reportable 11/21/19 08:53 Malaria parasites Not Reportable 11/21/19 08:53 Elio Bodies Not Reportable 11/21/19 08:53 Hem Pathologist Commnt No 11/21/19 08:53 Sodium 141 mmol/L (137-145) 11/22/19 04:49 Potassium 4.5 mmol/L (3.6-5.0) 11/22/19 04:49 Chloride 102.5 mmol/L (98-107) 11/22/19 04:49 Carbon Dioxide 25 mmol/L (22-30) 11/22/19 04:49 Anion Gap 18 mmol/L 11/22/19 04:49 BUN 13 mg/dL (9-20) 11/22/19 04:49 Creatinine 0.8 mg/dL (0.8-1.5) 11/22/19 04:49 Estimated GFR > 60 ml/min 11/22/19 04:49 BUN/Creatinine Ratio 16 % 11/22/19 04:49 Glucose 94 mg/dL (75-100) 11/22/19 04:49 Calcium 8.9 mg/dL (8.4-10.2) 11/22/19 04:49 Magnesium 2.40 mg/dL (1.7-2.3) H 11/21/19 08:53 Total Bilirubin 0.50 mg/dL (0.1-1.2) 11/22/19 04:49 AST 21 units/L (5-40) 11/22/19 04:49 ALT 14 units/L (7-56) 11/22/19 04:49 Alkaline Phosphatase 87 units/L (35-129) 11/22/19 04:49 Total Creatine Kinase 70 units/L (55-170) 11/19/19 20:10 Total Protein 6.6 g/dL (6.3-8.2) 11/22/19 04:49 Albumin 3.7 g/dL (3.9-5) L 11/22/19 04:49 Albumin/Globulin Ratio 1.3 % 11/22/19 04:49 Urine Color Yellow (Yellow) 11/19/19 19:57 Urine Turbidity Clear (Clear) 11/19/19 19:57 Urine pH 5.0 (5.0-7.0) 11/19/19 19:57 Ur Specific [place] 1.016 (1.003-1.030) 11/19/19 19:57 Urine Protein <15 mg/dl mg/dL (Negative) 11/19/19 19:57 Urine Glucose (UA) Neg mg/dL (Negative) 11/19/19 19:57 Urine Ketones Neg mg/dL (Negative) 11/19/19 19:57 Urine Blood Neg (Negative) 11/19/19 19:57 Urine Nitrite Neg (Negative) 11/19/19 19:57 Urine Bilirubin Neg (Negative) 11/19/19 19:57 Urine Urobilinogen < 2.0 mg/dL (<2.0) 11/19/19 19:57 Ur Leukocyte Esterase Neg (Negative) 11/19/19 19:57 Urine WBC (Auto) < 1.0 /HPF (0.0-6.0) 11/19/19 19:57 Urine RBC (Auto) 1.0 /HPF (0.0-6.0) 11/19/19 19:57 Urine Mucus Few /HPF 11/19/19 19:57 Salicylates < 0.3 mg/dL (2.8-20.0) L 11/19/19 20:10 Urine Opiates Screen Presumptive negative 11/19/19 19:57 Urine Methadone Screen Presumptive negative 11/19/19 19:57 Acetaminophen < 5.0 ug/mL (10.0-30.0) L 11/19/19 20:10 Ur Barbiturates Screen Presumptive negative 11/19/19 19:57 Ur Phencyclidine Scrn Presumptive negative 11/19/19 19:57 Ur Amphetamines Screen Presumptive negative 11/19/19 19:57 U Benzodiazepines Scrn Presumptive negative 11/19/19 19:57 Urine Cocaine Screen Presumptive positive 11/19/19 19:57 U Marijuana (THC) Screen Presumptive negative 11/19/19 19:57 Drugs of Abuse Note Disclamer 11/19/19 19:57 Plasma/Serum Alcohol < 0.01 % (0-0.07) 11/20/19 08:57 Jean/IV: Voiding Method Toilet IV Catheter Type [Right INT / Saline Lock Forearm] IV Catheter Type [Right INT / Saline Lock Antecubital] Active Medications - Current Medications Current Medications: Generic Name Dose Route Start Last Admin Trade Name Freq PRN Reason Stop Dose Admin Acetaminophen 650 mg 11/21/19 10:52 Tylenol PO Q4H PRN Pain MILD(1-3)/Fever >100.5/JEREZ Albuterol 2.5 mg 11/21/19 10:52 Proventil IH Q4H PRN Shortness Of Breath Chlordiazepoxide HCl 25 mg 11/23/19 08:00 Librium PO Q8H PRN Alcohol Withdrawal Famotidine 10 mg 11/19/19 22:00 11/24/19 09:45 Pepcid PO 10 mg BID HUNTER Administration Fish Oil 2,000 mg 11/21/19 10:00 11/24/19 09:45 Fish Oil PO 2,000 mg BID HUNTER Administration Folic Acid 1 mg 11/24/19 10:00 11/24/19 09:45 Folvite PO 1 mg DAILY HUNTER Administration Gabapentin 300 mg 11/23/19 10:00 11/24/19 09:45 Gabapentin PO 300 mg BID HUNTER Administration Sodium Chloride 1,000 mls @ 125 mls/hr 11/21/19 20:00 11/24/19 02:30 Nacl 0.9% 1000 Ml IV 125 mls/hr DIRECT HUNTER Administration Ibuprofen 400 mg 11/19/19 22:22 11/23/19 16:00 Ibuprofen PO 400 mg Q6HR PRN Administration Pain , Severe (7-10) Lorazepam 2 mg 11/21/19 10:52 11/24/19 13:14 Ativan PO 2 mg Q1H PRN Administration CIWA-Ar 8-15 Melatonin 5 mg 11/21/19 22:00 Melatonin PO QHS PRN Sleep Multivitamins 1 each 11/24/19 10:00 11/24/19 09:45 Theragran Tab PO 1 each DAILY HUNTER Administration Ondansetron HCl 4 mg 11/21/19 10:52 Zofran IV Q4H PRN Nausea And Vomiting Prazosin HCl 1 mg 11/21/19 22:00 11/23/19 21:21 Prazosin PO 1 mg HS HUNTER Administration Quetiapine Fumarate 50 mg 11/23/19 12:00 11/24/19 09:45 Seroquel PO 50 mg BID HUNTER Administration Senna 8.6 mg 11/21/19 22:00 11/24/19 09:45 Senokot PO 8.6 mg Q12HR HUNTER Administration Simethicone 80 mg 11/21/19 12:38 11/22/19 21:52 Mylicon PO 80 mg Q6H PRN Administration Gas pain Sodium Chloride 10 ml 11/21/19 22:00 11/24/19 09:46 Sodium Chloride Flush Syringe 10 Ml IV 10 ml BID HUNTER Administration Sodium Chloride 10 ml 11/21/19 10:52 Sodium Chloride Flush Syringe 10 Ml IV PRN PRN LINE FLUSH Thiamine HCl 100 mg 11/24/19 10:00 11/24/19 09:45 Vitamin B-1 PO 100 mg QDAY HUNTER Administration Trazodone HCl 50 mg 11/21/19 22:00 11/23/19 21:29 Desyrel PO 50 mg QHS HUNTER Administration
[2019-11-24] MEDS: IBUPROFEN 400 MG TAB PO PRN ×2 (16:29→20:50)
[2019-11-24] MEDS: traZODone 50 MG TAB PO SCH (21:00)
[2019-11-24] MEDS: PRAZOSIN 1 MG CAP PO SCH (21:00)
[2019-11-25] MEDS: SODIUM CHLORIDE 0.9% 1000 ML 1,000 ML IV SCH ×2 (01:35→09:07)
[2019-11-25] MEDS ORDERED: ALBUTEROL 2.5 MG/3 ML NEBU IH PRN (06:26)
[2019-11-25] MEDS: LORazepam 2 MG TAB PO PRN ×2 (08:29→12:31)
[2019-11-25] MEDS: MULTIVITAMINS ,THERAPEUTIC TAB PO SCH (09:07)
[2019-11-25] MEDS: OMEGA-3 FATTY ACIDS/FISH OIL 1 GRAM CAP PO SCH (09:07)
[2019-11-25] MEDS: FOLIC ACID 1 MG TAB PO SCH (09:07)
[2019-11-25] MEDS: SENNOSIDES 8.6 MG TAB PO SCH (09:07)
[2019-11-25] MEDS: FAMOTIDINE 10 MG TAB PO SCH (09:07)
[2019-11-25] MEDS: GABAPENTIN 300 MG CAP PO SCH (09:08)
[2019-11-25] MEDS: THIAMINE 100 MG TAB PO SCH (09:08)
[2019-11-25] MEDS: IBUPROFEN 400 MG TAB PO PRN (09:08)
[2019-11-25] MEDS: QUEtiapine 25 MG TAB PO SCH (09:08)
--- NOTE | 2019-11-25 11:15 | Progress Note ---
Subjective - Reason for Consult Consult date: 11/25/19 Reason for consult: MHE Requesting physician: MOOSE BOGGS - Chief Complaint Chief complaint: Per Floor Nurse Note: SHIFT REPORT GIVEN TO LEAH - RN, PATIENT IN BED SLEEPING, NO DISCOMFORT NOTED AND IS NOT IN ANY RESPIRATORY DISTRESS NOTED, AWAITING INPATIENT ADMISSION APPROVAL, CORRECTIVE AND MANUAL ARTS THERAPIST ON BOARD PATIENT CARE, WILL CONTINUE TO MONITOR. Psych Progress I interviewed patient at bedside this AM, he was resting comfortably, no distress noted. I told patient I can see you sleeping well, he acknowledged that, says he has been eating well, still SI, denies HI or AVH. I informed patient maximum inpatient Pscyhiatric management has been provided and I will discharge to case management. Pt states he will be right back. MENTAL STATUS EXAMINATION General Appearance and Behavior: dishelved , poor hygiene, wearing appropriate clothes, poor eye contact, cooperative with questioning and polite but irritable Cooperation: Participating/engaged Psychomotor Behavior: unremarkable and within normal limits Mood:Anxious, Depressed Affect and affective range: incongruent with mood Thought Process: Fluent/Logical Thought Content: Within reality Speech: Normal volume, Regular rate and rhythm Intellectual Functioning: Average Suicidal Ideation: Suicidal Homicidal Ideation: Denies Impulse Control: unimpaired Insight and Judgment: Poor insight and judgment Memory: Normal Attention: Normal Orientation: Alert, oriented RECOMMENDATIONS In my professional opinion, patient has achieved the maximum benefits of inpatient treatment at this time. Continuing inpatient treatment is contraindicated, as it will reinforce maladaptive behaviors. The patient is not psychotic and clearly seeking secondary gain for skilled nursing, food and medicine. He voiced he will be right back here if discharged. He has a history of this and also has a history of acting out when he does not get his way. The patient is at chronically high risk of harm to self and others due to personality disorder, substance abuse, homelessness, history of violence, and poor insight and judgment. These risk factors are not currently modifiable with acute inpatient psychiatric hospitalization; the patient is seeking secondary gain and psychiatrically hospitalizing this patient is contraindicated, as it will reinforce maladaptive behaviors of coming to the hospital when he does not have skilled nursing. Protective factors include access to care. MEDICATIONS: Patient has presciptions from 11/13 by Nancy Asif NP. Risks, benefits and alternatives of medications discussed with the patient, questions answered and consent obtained from patient. PSYCHOTHERAPY: Supportive psychotherapy provided MEDICAL: Per primary team DELIRIUM PRECAUTIONS: Please re-orient patient frequently, keep lights on during the day, and minimize benzodiazepines and opiates as these medications could worsen patient's confusion. PATIENT INTAKE COORDINATOR: Per Medical team DISPOSITION: Safety Discharge plan, No acute inpatient psychiatric hospitalization recommended at this time LEGAL STATUS: 1013 rescinded FOLLOW-UP: Will sign off Thank you for the consult. Please contact with any questions and/or concerns. Mental Status Exam - Vital signs Last Vital Signs Temp 98.1 F 11/25/19 04:29 Pulse 62 11/25/19 05:00 Resp 18 11/25/19 04:29 BP 103/61 11/25/19 04:29 Pulse Ox 97 11/25/19 04:29
[2019-11-25 12:16] VITALS: BP 103/62
--- NOTE | 2019-11-25 14:31 | Discharge Summary ---
Providers - Providers Date of Admission: 11/24/19 12:48 Date of discharge: 11/25/19 Attending physician: ARMIDA MARTIN 11/20/19 19:50 Consult to Case Management [CONS] Routine Services Needed at Discharge: Press Operator Printing Notified:: NO 11/21/19 10:54 Consult to Mental Health [CONS] Routine Reason For Exam: delirium Primary care physician: DERMATOLOGY TECHNICIAN Hospitalization Reason for admission: Suicidal ideation, alcohol withdrawal symptoms Condition: Stable Pertinent studies: Chest x-ray, pelvic x-ray Hospital course: 43-year-old male patient well-known to our service with multiple hospital admissions with history of chronic alcohol use bipolar disorder major depression recurrent episodes of suicidal ideation presented to the emergency room with history of suicidal thoughts and alcohol intoxication and alcohol withdrawal symptoms. Patient was evaluated by psych in the ER placed on 101, patient will be admitted to telemetry placed on CIWA protocol, suicidal watch Managed with IV fluids thiamine folic acid neurochecks and supportive care, Patient symptoms gradually and significantly improved. Strongly advised to quit alcohol intake also advised him to seek alcohol rehabilitation, Patient was periodically seen by psychiatrist, withdrawal symptoms completely resolved, psychiatrist has recommended inpatient psych placement however patient had social issues, patient was medically cleared and plans are being made to discharge him to inpatient psych facility However psych feels that patient is stable enough to be discharged home, rescinded 1013 and advised him to see private psychiatrist as well as alcohol rehabilitation Today patient is comfortable no new complaints vital signs stable No tremulousness or agitation, hemodynamically and clinically stable at discharge Once again patient was counseled to quit alcohol and tobacco use Seek AA group help and consider alcohol rehabilitation Patient verbalized understanding, stable at discharge Discharge diagnosis: --Suicidal ideation; Evaluated by psych, placed on suicidal watch Symptoms relieved, psych rescinded 1013 Cleared for discharge home --Alcohol intoxication with withdrawal; Thiamine folic acid, CIWA protocol Withdrawal symptoms resolved --Delirium tremens; Resolved --Major depression disorder;antidepressants per psych --Bipolar disorder;Management per psych, --Recurrent substance abuse cocaine and marijuana; --Noncompliance with medications and treatment; Strongly advised to comply with medications and diet --Polysubstance abuse; patient advised to quit cocaine use Smoking cessation consult, again advised to quit alcohol intake and seek help --Homelessness; DC planning per case management Stable at discharge Disposition: DC-01 TO HOME OR SELFCARE Time spent for discharge: 32 min Core Measure Documentation - Palliative Care Palliative Care/ Comfort Measures: Not Applicable - Core Measures Any of the following diagnoses?: none Exam - Constitutional Vitals: Temp Pulse Resp BP Pulse Ox 98.2 F 75 20 103/62 97 11/25/19 12:03 11/25/19 12:03 11/25/19 12:03 11/25/19 12:03 11/25/19 12:03 General appearance: Present: no acute distress, well-nourished - EENT Eyes: Present: PERRL, EOM intact - Neck Neck: Present: supple, normal ROM - Respiratory Respiratory effort: normal Respiratory: bilateral: diminished, negative: rales, rhonchi, wheezing - Cardiovascular Rhythm: regular Heart Sounds: Present: S1 & S2 - Extremities Extremities: no ischemia, No edema - Abdominal General gastrointestinal: Present: soft, non-tender, non-distended, normal bowel sounds - Integumentary Integumentary: Present: clear, warm - Musculoskeletal Musculoskeletal: strength equal bilaterally - Psychiatric Psychiatric: appropriate mood/affect, cooperative - Neurologic Neurologic: CNII-XII intact, moves all extremities Plan Activity: no restrictions Diet: regular Special Instructions: smoking cessation Additional Instructions: Smoking cessation, nicotine patch as needed. Advised to quit alcohol intake. Advised to follow [facility] with psychiatrist in 1 to 2 weeks Follow up with: PRIMARY CARE, [Primary Care Provider] - 3-5 Days Prescriptions: traZODone [Desyrel] 50 mg PO QHS #30 tab Folic Acid [Folvite] 1 mg PO QDAY #30 tablet Gabapentin 300 mg PO DAILY #30 cap Thiamine [Vitamin B-1] 100 mg PO QDAY #30 tablet
== END 2019-11-25 15:40 | disposition home or self-care (01) | DRG 897 ==
LOC: EEVIPCON 19:27 → ED 19:27 → 3A 11-21 09:04 → 4A 11-21 12:14 → OBSVTOIN 11-24 12:48
PROVIDERS: ADMIT Internal Medicine; ATTEND Internal Medicine
DX: F10.231 Alcohol dependence with withdrawal delirium (principal); R45.851 Suicidal ideations; E83.42 Hypomagnesemia; F32.9 Major depressive disorder, single episode, unspecified; F14.10 Cocaine abuse, uncomplicated; F12.10 Cannabis abuse, uncomplicated; Z88.0 Allergy status to penicillin; Z88.2 Allergy status to sulfonamides; Z59.0 Homelessness; G89.29 Other chronic pain; M25.559 Pain in unspecified hip; F17.210 Nicotine dependence, cigarettes, uncomplicated; Z91.14 Patient's other noncompliance with medication regimen; Y90.9 Presence of alcohol in blood, level not specified
CPT/HCPCS: 36415; 71045; 72170; 80048; 80053; 80307; 80320; 81001; 82550; 83735; 85007; 85025; 93005; G0378; G0480; J2060; J3411; J7030